=== PATIENT | male | born 1940 | race Two or more races ===

== ENCOUNTER 2017-05-04 10:15 | Outpatient (CLI) | payer MEDICARE, MEDICAID | END 2017-05-04 23:59 | disposition home or self-care (01) | LOC: WOU 10:15 | PROVIDERS: ATTEND Podiatrist Foot & Ankle Surgery | PROC: 0HBKXZZ Excision of Right Lower Leg Skin, External Approach (ICD-10-PCS; principal; 2017-05-04) | DX: I87.311 Chronic venous hypertension (idiopathic) with ulcer of right lower extremity (principal); L97.811 Non-pressure chronic ulcer of other part of right lower leg limited to breakdown of skin; Z87.891 Personal history of nicotine dependence; I10 Essential (primary) hypertension; L81.9 Disorder of pigmentation, unspecified; L53.9 Erythematous condition, unspecified; E83.19 Other disorders of iron metabolism | CPT/HCPCS: 11301; 88305 ×2; A6402; J3490 ==

== ENCOUNTER 2017-05-21 10:45 | Outpatient (CLI) | payer MEDICARE, MEDICAID | END 2017-05-21 23:59 | disposition home or self-care (01) | LOC: WOU 10:45 | PROVIDERS: ATTEND Podiatrist Foot & Ankle Surgery | DX: I87.311 Chronic venous hypertension (idiopathic) with ulcer of right lower extremity (principal); L97.911 Non-pressure chronic ulcer of unspecified part of right lower leg limited to breakdown of skin; I73.9 Peripheral vascular disease, unspecified; E78.5 Hyperlipidemia, unspecified; I25.10 Atherosclerotic heart disease of native coronary artery without angina pectoris; I10 Essential (primary) hypertension; Z87.891 Personal history of nicotine dependence; Z95.820 Peripheral vascular angioplasty status with implants and grafts | CPT/HCPCS: 11042; A6402 ==

== ENCOUNTER 2017-05-27 11:58 | Inpatient (IN) | payer MEDICAID, MEDICARE ==
[~2017-05-27] VITALS: Ht 188 cm; Wt 88.9 kg
--- NOTE | 2017-05-27 12:20 | NUR ---
SENT BY PMD FROM [facility] FOR RLE WOUND EVAL FOR SKIN GRAFT, NAD NOTED, VSS, PUT ON MONITOR. WAITING FOR MD EVAL.
[2017-05-27 12:51] LABS: BASOPHILS # (AUTO) 0.1 /CMM (0.0-0.2); BASOPHILS % (AUTO) 0.8 % (0.0-2.0); EOSINOPHILS # (AUTO) 0.4 /CMM (0.0-0.7); EOSINOPHILS % (AUTO) 5.9 % (0.0-6.0); HEMATOCRIT 37 % (39-51); HEMOGLOBIN 12.1 g/dL (13.5-17.5); LYMPHOCYTES # (AUTO) 1.2 /CMM (0.8-4.8); LYMPHOCYTES % (AUTO) 19.1 % (20.0-44.0); MEAN CORPUSCULAR HEMOGLOBIN 29 PG (26.0-33.0); MEAN CORPUSCULAR HGB CONC 33 g/dl (31.0-36.0); MEAN CORPUSCULAR VOLUME 89 fL (80-96); MONOCYTES # (AUTO) 0.7 /CMM (0.1-1.30); MONOCYTES % (AUTO) 10.1 % (2.0-12.0); NEUTROPHILS % (AUTO) 64.1 % (43.0-81.0); PLATELET COUNT (AUTO) 233 /CMM (150-450); RDW COEFFICIENT OF VARIATION 13.9 (11.5-15.0); RED BLOOD CELL COUNT(AUTO) 4.18 MIL/uL (4.5-6.0); WHITE BLOOD COUNT (AUTO) 6.4 K/uL (4.3-11.0)
[2017-05-27 13:00] LABS: CARBON DIOXIDE 24 mmol/L (21-32); CHLORIDE 106 mmol/L (98-107); CREATININE 1.9 mg/dL (0.6-1.3); GLUCOSE 91 mg/dL (74-106); POTASSIUM 4.4 mmol/L (3.5-5.1); SODIUM SERUM 138 mmol/L (136-145); UREA NITROGEN, BLOOD 25 mg/dL (7-18)
[2017-05-27 13:05] LABS: INR 0.93 (0.87-1.13); PROTHROMBIN TIME 9.7 SECS (9.5-12.7)
[2017-05-27] MEDS ORDERED: HYDROCODONE/APAP 5/325MG 1 EACH TABLET PO PRN (14:00)
[2017-05-27] MEDS ORDERED: ONDANSETRON HCL/PF 4 MG/2 ML VIAL IVP PRN (14:00)
[2017-05-27] MEDS ORDERED: MAGNESIUM HYDROXIDE 30 ML UDC PO PRN (14:00)
[2017-05-27] MEDS ORDERED: MAG HYDROX/AL HYDROX/SIMETH 30 ML UDC PO PRN (14:00)
[2017-05-27] MEDS ORDERED: ACETAMINOPHEN 325 MG TABLET PO PRN (14:00)
[2017-05-27] MEDS ORDERED: ATOR10TA PO (14:14)
[2017-05-27] MEDS ORDERED: MULT1TAB73 PO (14:14)
[2017-05-27] MEDS ORDERED: AMLO5TAB4 PO (14:14)
[2017-05-27] MEDS ORDERED: CLOP75TA2 PO (14:14)
[2017-05-27] MEDS ORDERED: BENA40TA67 PO (14:14)
[2017-05-27] MEDS ORDERED: METO-304 PO (14:14)
--- NOTE | 2017-05-27 14:28 | NUR ---
PT SENT TO [facility] FERREIRA RECEIVED REPORT
[2017-05-27 14:30] VITALS: BP 135/64
--- NOTE | 2017-05-27 14:44 | NUR ---
PT SENT TO BED 12 TA.
[2017-05-27] MEDS: METOPROLOL SUCCINATE 50 MG TAB.SR.24H PO SCH (19:18)
--- NOTE | 2017-05-27 20:00 | NUR ---
PT APPEARS COMFORTABLE. NO INTERVENTIONS REQUIRED AT THIS TIME.
--- NOTE | 2017-05-27 23:00 | NUR ---
NO CHANGES NOTED. CONTINUE TO MONITOR.
[2017-05-27 23:05] VITALS: BP 168/74
[2017-05-28] VITALS (8 sets, daily range): BP systolic 75–146; BP diastolic 36–86
--- NOTE | 2017-05-28 03:35 | NUR ---
CONTINUE TO WAIT FOR ROOM ASSIGNMENT.
[2017-05-28 05:48] LABS: BASOPHILS # (AUTO) 0.1 /CMM (0.0-0.2); BASOPHILS % (AUTO) 1.4 % (0.0-2.0); EOSINOPHILS # (AUTO) 0.4 /CMM (0.0-0.7); EOSINOPHILS % (AUTO) 6.4 % (0.0-6.0); HEMATOCRIT 37 % (39-51); HEMOGLOBIN 12.3 g/dL (13.5-17.5); LYMPHOCYTES # (AUTO) 1.3 /CMM (0.8-4.8); LYMPHOCYTES % (AUTO) 19.3 % (20.0-44.0); MEAN CORPUSCULAR HEMOGLOBIN 29 PG (26.0-33.0); MEAN CORPUSCULAR HGB CONC 33 g/dl (31.0-36.0); MEAN CORPUSCULAR VOLUME 89 fL (80-96); MONOCYTES # (AUTO) 0.6 /CMM (0.1-1.30); NEUTROPHILS # (AUTO) 4.5 /CMM (1.8-8.9); NEUTROPHILS % (AUTO) 63.9 % (43.0-81.0); PLATELET COUNT (AUTO) 231 /CMM (150-450); RED BLOOD CELL COUNT(AUTO) 4.19 MIL/uL (4.5-6.0)
--- NOTE | 2017-05-28 05:48 | NUR ---
UNABLE TO OBTAIN CORRECT BLOOD PRESSURE USING UPPER EXTREMITIES - 75/42. PT IS ALERT AND ORENTED. SKINS DRY. STEADY GAIT. DENIES AND DISTRESS. PALPABLE RADIAL PULSES. USED LEFT CALF TO OBTAIN - 126/75.
[2017-05-28 06:17] LABS: CARBON DIOXIDE 25 mmol/L (21-32); CHLORIDE 108 mmol/L (98-107); CREATININE 1.8 mg/dL (0.6-1.3); GLUCOSE 92 mg/dL (74-106); PHOSPHORUS 3.6 mg/dL (2.5-4.9); POTASSIUM 4.9 mmol/L (3.5-5.1); SODIUM SERUM 141 mmol/L (136-145); UREA NITROGEN, BLOOD 23 mg/dL (7-18)
[2017-05-28 06:23] LABS: CHOLESTEROL 169 mg/dL (<200); HDL CHOLESTEROL 49 mg/dL (40-60); LDL 96 mg/dL (0-99); TRIGLYCERIDES 91 mg/dL (30-150)
--- NOTE | 2017-05-28 06:34 | NUR ---
PT TO GO TO SX AROUND 1300 TO MANAGE HIS LEG WOUND. HOLD PLAVIX AND MAKE PT NPO PER DR. RACHNA HIRSCH.
--- NOTE | 2017-05-28 06:36 | NUR ---
AFTER SX PT TO BE RETURNED TO LONG TERM.
[2017-05-28] MEDS: PANTOPRAZOLE 40 MG TABLET.DR PO SCH (07:30)
--- NOTE | 2017-05-28 07:30 | NUR ---
PATIENT ON BED, CONNECTED TO TELE MONITOR. VSS. SCHEDULED FOR RIGHT FOOT DEBRIDEMENT TODAY. REMAINS NPO.WILL HOLD PLAVIX
[2017-05-28] MEDS: CLOPIDOGREL BISULFATE 75 MG TABLET PO SCH (09:00)
--- NOTE | 2017-05-28 09:00 | NUR ---
PATIENT WAS TAKEN TO SX DEPARTMENT
[2017-05-28] MEDS: BENAZEPRIL HCL 10 MG TABLET PO SCH (09:19)
[2017-05-28] MEDS: ATORVASTATIN 10 MG TABLET PO SCH (09:19)
[2017-05-28] MEDS: METOPROLOL SUCCINATE 50 MG TAB.SR.24H PO SCH ×2 (09:19→17:30)
[2017-05-28] MEDS: AMLODIPINE BESYLATE 5 MG TABLET PO SCH (09:19)
[2017-05-28] MEDS: MULTIVITAMINS,THERAGRAN 1 UDTAB TABLET PO SCH (09:19)
--- NOTE | 2017-05-28 12:00 | NUR ---
RN ADMITTING NOTES: REC'D REPORT FROM TOM DONAHUE. PT ADMITTED AT ROOM 110, MED SURG STATUS. PT A/O X 3, NOT IN ANY DISTRESS, DENIES ANY PAIN/DISCOMFORT AT THIS TIME. ON ROOM AIR, NO SOB. PT S/P R LEG WOUND DEBRIDEMENT W/ WOUND VAC AT BEDSIDE AT 125 MMHG CONT PRESSURE. HAS LFA G22, SL, FLUSHED, PATENT & INTACT W/ NO S/SX OF INFECTION/INFILTRATION NOTED. WOUND PHOTO TAKEN & PLACED IN CHART. PT ORIENTED TO ROOM. ROUTINE ASSESSMENT DONE. PROVIDED COMFORT & SAFETY MEASURES. BED KEPT LOW & IN LOCKED POS. CALL LIGHT PLACED W/IN REACH. WILL CONTINUE TO MONITOR AND ATTEND PT NEEDS. PT SEEN & EXAMINED BY DR. BOONE.
--- NOTE | 2017-05-28 18:31 | NUR ---
RN CLOSING NOTES: NO ACUTE CHANGES NOTED W/IN SHIFT. PT TOLERATED ROOM AIR W/ NO SOB. LFA G22, SL, KEPT PATENT & INTACT W/ NO S/SX OF INFECTION/INFILTRATION NOTED. R LEG S/P WOUND DEBRIDEMENT KEPT ELEVATED, STILL ON CONT WOUND VAC 125 MMHG. NO S/SX OF INFECTION NOTED, (+) PEDAL PULSE. REMINDED PT NWB ON RLE. KEPT WELL RESTED. NEEDS ATTENDED. BED KEPT LOW & IN LOCKED POS. CALL LIGHT PLACED W/IN REACH. WILL ENDORSE TO PM RN FOR TWIN.
--- NOTE | 2017-05-28 19:05 | NUR ---
RN OPENING NOTES RECEIVED REPORT FROM GEORGIANA Bustos RN. PATIENT A/A/O X3, ABLE TO MAKE NEEDS KNOWN. BREATHING EVEN & UNLABORED, SATING WELL ON ROOM AIR. DENIES SOB OR DIFFICULTY BREATHING. PULSES PRESENT. SKIN WARM, DRY & INTACT. RIGHT LEG WOUND W/ ULCER S/P DEBRIDEMENT W/ DRESSING CDI & NO COMPLICATIONS NOTED. WOUND VAC ONGOING @ 125 MMHG. C/O OF MINIMAL PAIN @ WOUND SITE. LEFT FOREARM IV #22 INTACT & PATENT W/ DRESSING CDI, SALINE LOCKED. DENIES ANY OTHER PAIN OR DISCOMFORT @ THIS TIME. SAFETY MEASURES IN PLACE W/ SIDE RAILS UP, BED LOCKED & IN LOWEST POSITION & CALL LIGHT WITHIN REACH. WILL CONTINUE TO MONITOR.
[2017-05-29 04:00] VITALS: BP 114/57
[2017-05-29 05:21] LABS: APPEARANCE,URINE CLEAR (CLEAR); BILIRUBIN,URINE NEGATIVE (NEGATIVE); BLOOD, URINE NEGATIVE Ery/uL (NEGATIVE); COLOR,URINE YELLOW (YELLOW); KETONES,URINE NEGATIVE (NEGATIVE); LEUKOCYTE ESTERASE ,URINE NEGATIVE (NEGATIVE); NITRITE, URINE NEGATIVE (NEGATIVE); PH,URINE 5.5 (5.0-8.0); PROTEIN,URINE NEGATIVE (NEGATIVE); UGLUCOSE NEGATIVE (NEGATIVE); UROBILINOGEN,URINE 0.2 EU/dL (0.2)
[2017-05-29 06:52] LABS: BASOPHILS % (AUTO) 0.4 % (0.0-2.0); EOSINOPHILS # (AUTO) 0.4 /CMM (0.0-0.7); EOSINOPHILS % (AUTO) 4.3 % (0.0-6.0); HEMATOCRIT 36 % (39-51); HEMOGLOBIN 12.1 g/dL (13.5-17.5); LYMPHOCYTES # (AUTO) 1.4 /CMM (0.8-4.8); LYMPHOCYTES % (AUTO) 16.5 % (20.0-44.0); MEAN CORPUSCULAR HEMOGLOBIN 30 PG (26.0-33.0); MEAN CORPUSCULAR HGB CONC 33 g/dl (31.0-36.0); MEAN CORPUSCULAR VOLUME 89 fL (80-96); MONOCYTES # (AUTO) 0.5 /CMM (0.1-1.30); MONOCYTES % (AUTO) 6.5 % (2.0-12.0); NEUTROPHILS % (AUTO) 72.3 % (43.0-81.0); PLATELET COUNT (AUTO) 203 /CMM (150-450); RDW COEFFICIENT OF VARIATION 15.1 (11.5-15.0); RED BLOOD CELL COUNT(AUTO) 4.09 MIL/uL (4.5-6.0); WHITE BLOOD COUNT (AUTO) 8.3 K/uL (4.3-11.0)
[2017-05-29 06:59] LABS: CALCIUM, SERUM 8.6 mg/dL (8.5-10.1); CARBON DIOXIDE 24 mmol/L (21-32); CHLORIDE 106 mmol/L (98-107); CREATININE 1.7 mg/dL (0.6-1.3); GLUCOSE 88 mg/dL (74-106); PHOSPHORUS 3.8 mg/dL (2.5-4.9); POTASSIUM 4.8 mmol/L (3.5-5.1); SODIUM SERUM 138 mmol/L (136-145); UREA NITROGEN, BLOOD 19 mg/dL (7-18)
--- NOTE | 2017-05-29 07:16 | NUR ---
RN NOTES RECEIVED PT FROM CHILD CARE SITTER IN STABLE CONDITION. A&0X3 ON ROOM AIR NO SOB OR DISTRESS NOTED. LFA 22G IV SITE INTACT NO IVF. WOUND VAC IN PLACE, DRESSING INTACT. BED LOCKED AND IN LOWEST POSITION, CALL LIGHT WITHIN REACH, SIDE RAILS UPX3, WILL CONT TO ARGELIA.
[2017-05-29 08:00] VITALS: BP 115/56
[2017-05-29] MEDS: AMLODIPINE BESYLATE 5 MG TABLET PO SCH (08:30)
[2017-05-29] MEDS: METOPROLOL SUCCINATE 50 MG TAB.SR.24H PO SCH ×2 (08:31→17:05)
[2017-05-29] MEDS: PANTOPRAZOLE 40 MG TABLET.DR PO SCH (08:31)
[2017-05-29] MEDS: CLOPIDOGREL BISULFATE 75 MG TABLET PO SCH (08:31)
[2017-05-29] MEDS: MULTIVITAMINS,THERAGRAN 1 UDTAB TABLET PO SCH (08:31)
[2017-05-29] MEDS: ATORVASTATIN 10 MG TABLET PO SCH (08:31)
[2017-05-29] MEDS: BENAZEPRIL HCL 10 MG TABLET PO SCH (08:32)
--- NOTE | 2017-05-29 08:43 | NUR ---
WOUND CARE CONSULT: PT INDEPENDENT WITH BED MOBILITY AND CONTINENT. CURRENT DEMETRIO SCORE IS 19. PT HAS [facility] VAC TO RT ANTERIOR LOWER LEG WHICH IS FUNCTIONING WELL AT 125mmHg CONTINUOUS SETTING. NO DRAINAGE NOTED IN CANISTER. DEFER TO DR ZUNIGA FOR WOUND TREATMENT PLAN. WILL SEE PRN. LEE IN AGREEMENT WITH PLAN OF CARE. Addendum: 05/29/17 at 0844 by INOCENTE VILLAGOMEZ WNDNU Amended: Links added.
[2017-05-29 16:00] VITALS: BP 127/63
--- NOTE | 2017-05-29 18:22 | NUR ---
RN NOTES PT REMAINED IN STABLE CONDITION THROUGHOUT THE SHIFT, ALL NEEDS MET. WILL ENDORSE TO ONCOMING SHIFT.
[2017-05-29 20:00] VITALS: BP 164/78
[2017-05-30 04:00] VITALS: BP 121/65
[2017-05-30 06:26] LABS: BASOPHILS % (AUTO) 0.3 % (0.0-2.0); EOSINOPHILS # (AUTO) 0.4 /CMM (0.0-0.7); EOSINOPHILS % (AUTO) 5.4 % (0.0-6.0); HEMATOCRIT 37 % (39-51); HEMOGLOBIN 12.2 g/dL (13.5-17.5); LYMPHOCYTES # (AUTO) 1.9 /CMM (0.8-4.8); LYMPHOCYTES % (AUTO) 22.2 % (20.0-44.0); MEAN CORPUSCULAR HEMOGLOBIN 29 PG (26.0-33.0); MEAN CORPUSCULAR HGB CONC 33 g/dl (31.0-36.0); MEAN CORPUSCULAR VOLUME 88 fL (80-96); MONOCYTES # (AUTO) 0.6 /CMM (0.1-1.30); MONOCYTES % (AUTO) 6.9 % (2.0-12.0); NEUTROPHILS # (AUTO) 5.4 /CMM (1.8-8.9); NEUTROPHILS % (AUTO) 65.2 % (43.0-81.0); PLATELET COUNT (AUTO) 209 /CMM (150-450); RDW COEFFICIENT OF VARIATION 14.7 (11.5-15.0); RED BLOOD CELL COUNT(AUTO) 4.18 MIL/uL (4.5-6.0); WHITE BLOOD COUNT (AUTO) 8.4 K/uL (4.3-11.0)
[2017-05-30 06:49] LABS: CALCIUM, SERUM 8.8 mg/dL (8.5-10.1); CARBON DIOXIDE 24 mmol/L (21-32); CHLORIDE 105 mmol/L (98-107); CREATININE 1.7 mg/dL (0.6-1.3); GLUCOSE 88 mg/dL (74-106); PHOSPHORUS 3.9 mg/dL (2.5-4.9); POTASSIUM 4.3 mmol/L (3.5-5.1); SODIUM SERUM 138 mmol/L (136-145); UREA NITROGEN, BLOOD 22 mg/dL (7-18)
--- NOTE | 2017-05-30 07:30 | NUR ---
RN AM NOTES PT IN BED, AAO X4, WATCHING TV, S/P DEBRIDEMENT RT LEG 05/28/17, WOUND VAC IN PLACE, O OUTPUT CDI DRESSING, ON ROOM AIR, NO SOB OR DISTRESS NOTED. LFA 22G IV, FLUSHES WELL, SITE CLEAR, ON CARDIAC DIET, BRP WITH ASSIST, NWB TO RLE. BED LOCKED AND IN LOWEST POSITION, CALL LIGHT WITHIN REACH, SIDE RAILS UPX3, WILL CONT TO ARGELIA.
[2017-05-30 08:00] VITALS: BP 129/66
[2017-05-30] MEDS: PANTOPRAZOLE 40 MG TABLET.DR PO SCH (08:24)
[2017-05-30] MEDS: BENAZEPRIL HCL 10 MG TABLET PO SCH (08:24)
[2017-05-30] MEDS: ATORVASTATIN 10 MG TABLET PO SCH (08:24)
[2017-05-30] MEDS: AMLODIPINE BESYLATE 5 MG TABLET PO SCH (08:25)
[2017-05-30] MEDS: CLOPIDOGREL BISULFATE 75 MG TABLET PO SCH (08:26)
[2017-05-30] MEDS: MULTIVITAMINS,THERAGRAN 1 UDTAB TABLET PO SCH (08:26)
[2017-05-30] MEDS: METOPROLOL SUCCINATE 50 MG TAB.SR.24H PO SCH ×2 (08:28→16:52)
--- NOTE | 2017-05-30 09:30 | NUR ---
MS RN NOTES ADMINISTERED DUE MEDS.
[2017-05-30 16:00] VITALS: BP 130/64
--- NOTE | 2017-05-30 18:47 | NUR ---
RN CLOSING NOTES PT IN BED,RESTING COMFORTABLY, AAO X4, WATCHING TV, S/P DEBRIDEMENT RT LEG 05/28/17, WOUND VAC IN PLACE, O OUTPUT CDI DRESSING, SEEN BY DR. TOBAR EARLIER, DRESSING CHANGED. ON ROOM AIR, NO SOB OR DISTRESS NOTED. LFA 22G IV, FLUSHES WELL, SITE CLEAR, ON CARDIAC DIET, BRP WITH ASSIST, NWB TO RLE. BED LOCKED AND IN LOWEST POSITION, CALL LIGHT WITHIN REACH, SIDE RAILS UPX3, ALL NEEDS MET. NO OTHER SIGNIFICANT CHANGE IN CONDITION. WILL ENDORSE TO NEXT SHIFT FOR TWIN.
[2017-05-30 20:00] VITALS: BP 129/60
--- NOTE | 2017-05-30 20:00 | NUR ---
RN INITIAL NOTES PT IN BED,RESTING COMFORTABLY, AAO X4, WATCHING TV, S/P DEBRIDEMENT RT LEG 05/28/17, WOUND VAC IN PLACE. ON ROOM AIR, NO SOB OR DISTRESS NOTED. LFA 22G IV, FLUSHES WELL, SITE CLEAR, ON CARDIAC DIET, BRP WITH ASSIST, NWB TO RLE. BED LOCKED AND IN LOWEST POSITION, CALL LIGHT WITHIN REACH, SIDE RAILS UPX3, WILL CONTINUE TO MONITOR PT.
[2017-05-31 04:00] VITALS: BP 129/60
[2017-05-31 05:58] LABS: BASOPHILS % (AUTO) 0.1 % (0.0-2.0); EOSINOPHILS # (AUTO) 0.4 /CMM (0.0-0.7); HEMATOCRIT 38 % (39-51); HEMOGLOBIN 12.6 g/dL (13.5-17.5); LYMPHOCYTES # (AUTO) 1.5 /CMM (0.8-4.8); LYMPHOCYTES % (AUTO) 19.1 % (20.0-44.0); MEAN CORPUSCULAR HEMOGLOBIN 30 PG (26.0-33.0); MEAN CORPUSCULAR HGB CONC 34 g/dl (31.0-36.0); MEAN CORPUSCULAR VOLUME 88 fL (80-96); MONOCYTES # (AUTO) 0.5 /CMM (0.1-1.30); MONOCYTES % (AUTO) 6.9 % (2.0-12.0); NEUTROPHILS # (AUTO) 5.3 /CMM (1.8-8.9); NEUTROPHILS % (AUTO) 68.9 % (43.0-81.0); PLATELET COUNT (AUTO) 195 /CMM (150-450); RDW COEFFICIENT OF VARIATION 14.1 (11.5-15.0); RED BLOOD CELL COUNT(AUTO) 4.25 MIL/uL (4.5-6.0); WHITE BLOOD COUNT (AUTO) 7.6 K/uL (4.3-11.0)
[2017-05-31 06:17] LABS: CALCIUM, SERUM 8.6 mg/dL (8.5-10.1); CARBON DIOXIDE 23 mmol/L (21-32); CHLORIDE 106 mmol/L (98-107); CREATININE 1.6 mg/dL (0.6-1.3); GLUCOSE 92 mg/dL (74-106); MAGNESIUM 1.9 mg/dL (1.8-2.4); PHOSPHORUS 3.5 mg/dL (2.5-4.9); POTASSIUM 3.8 mmol/L (3.5-5.1); SODIUM SERUM 139 mmol/L (136-145); UREA NITROGEN, BLOOD 25 mg/dL (7-18)
--- NOTE | 2017-05-31 07:15 | NUR ---
RN CLOSING NOTES PT SLEPT MOST OF THE NIGHT, NO CHANGES OVER NIGHT. BED LOCKED AND IN LOWEST POSITION, CALL LIGHT WITHIN REACH, SIDE RAILS UPX2, ALL NEEDS TENDED TO . RN WILL ENDORSE TO AM RN.
--- NOTE | 2017-05-31 07:56 | NUR ---
MS RN NOTES RECEIVED PT RESTING COMFORTABLE, A/O X 4, NO PAIN OR DISCOMFORT NOTED AT THIS TIME. RIGHT LOWER LEG WOUND VAC @ 25CC/HR CONTINUE SUCTION, L FA #22 WITH REDNESS AND TENDERNESS NOTED. BED LOCKED AND LOW POSITION. SAFETY FALL PRECAUTION OBSERVED. CALL LIGHT WITHIN REACH. PLAN OF CARE DISCUSS TO THE PT. WILL CONTINUE TO MONITOR CLOSELY.
[2017-05-31 08:00] VITALS: BP 129/71
[2017-05-31] MEDS: BENAZEPRIL HCL 10 MG TABLET PO SCH (08:26)
[2017-05-31] MEDS: AMLODIPINE BESYLATE 5 MG TABLET PO SCH (08:26)
[2017-05-31] MEDS: METOPROLOL SUCCINATE 50 MG TAB.SR.24H PO SCH ×2 (08:26→16:31)
[2017-05-31] MEDS: CLOPIDOGREL BISULFATE 75 MG TABLET PO SCH (08:26)
[2017-05-31] MEDS: MULTIVITAMINS,THERAGRAN 1 UDTAB TABLET PO SCH (08:27)
[2017-05-31] MEDS: PANTOPRAZOLE 40 MG TABLET.DR PO SCH (08:27)
[2017-05-31] MEDS: ATORVASTATIN 10 MG TABLET PO SCH (08:27)
--- NOTE | 2017-05-31 14:51 | NUR ---
MS RN NOTES INSERTED IV LINE G24 AT RIGHT UPPER ARM, WITH GOOD BLOOD RETURN.
[2017-05-31 16:00] VITALS: BP_SYST 121; BP_DIAS 71; BP_DIAS 78
--- NOTE | 2017-05-31 17:01 | NUR ---
MS RN NOTE HOLD D/C BY DR. BOONE FOR POSSIBLE SPLIT THICKNESS SKIN GRAFT ON THURSDAY.
--- NOTE | 2017-05-31 18:23 | NUR ---
MS RN NOTE NO ACUTE CHANGES NOTED DURING THE SHIFT. HAVING DINNER ABLE TO FEED SELF. CONTINUE VAC AT THE RIGHT LEG. CALL LIGHT WITHIN REACH. BED IN LOCKED POSITION. ALL NEEDS ATTENDED. WILL ENDORSE TO THE PM NURSE.
[2017-05-31 20:00] VITALS: BP 132/64
--- NOTE | 2017-05-31 20:16 | NUR ---
RN INITIAL NOTE PT IS RESTING IN BED AT THIS TIME. R LE WOUND VAC TO CONTINUOUS SUCTION. PT IS IN NO DISTRESS. CALL LIGHT WITHIN REACH. BED IN LOWEST AND LOCKED POSITION. ALL NEEDS ATTENDED. RN WILL CONTINUE TO MONITOR PT.
[2017-06-01] VITALS (8 sets, daily range): BP systolic 113–139; BP diastolic 64–78
[2017-06-01 06:22] LABS: BASOPHILS % (AUTO) 0.4 % (0.0-2.0); EOSINOPHILS # (AUTO) 0.4 /CMM (0.0-0.7); EOSINOPHILS % (AUTO) 5.3 % (0.0-6.0); HEMATOCRIT 37 % (39-51); HEMOGLOBIN 12.6 g/dL (13.5-17.5); LYMPHOCYTES # (AUTO) 1.8 /CMM (0.8-4.8); LYMPHOCYTES % (AUTO) 20.9 % (20.0-44.0); MEAN CORPUSCULAR HEMOGLOBIN 30 PG (26.0-33.0); MEAN CORPUSCULAR HGB CONC 34 g/dl (31.0-36.0); MEAN CORPUSCULAR VOLUME 89 fL (80-96); MONOCYTES # (AUTO) 0.6 /CMM (0.1-1.30); MONOCYTES % (AUTO) 7.6 % (2.0-12.0); NEUTROPHILS # (AUTO) 5.5 /CMM (1.8-8.9); NEUTROPHILS % (AUTO) 65.8 % (43.0-81.0); PLATELET COUNT (AUTO) 207 /CMM (150-450); RDW COEFFICIENT OF VARIATION 14.1 (11.5-15.0); RED BLOOD CELL COUNT(AUTO) 4.21 MIL/uL (4.5-6.0); WHITE BLOOD COUNT (AUTO) 8.4 K/uL (4.3-11.0)
[2017-06-01 06:39] LABS: CALCIUM, SERUM 8.7 mg/dL (8.5-10.1); CARBON DIOXIDE 24 mmol/L (21-32); CHLORIDE 107 mmol/L (98-107); CREATININE 1.6 mg/dL (0.6-1.3); GLUCOSE 91 mg/dL (74-106); POTASSIUM 3.9 mmol/L (3.5-5.1); SODIUM SERUM 141 mmol/L (136-145); UREA NITROGEN, BLOOD 27 mg/dL (7-18)
--- NOTE | 2017-06-01 07:00 | NUR ---
RN CLOSING NOTES PT IS RESTING IN BED AT THIS TIME. R LE WOUND VAC TO CONTINUOUS SUCTION. PT IS IN NO DISTRESS.PT NPO IN PREPARATION FOR SURGERY. RN WITNESS PT CONSENT FOR SURGERY. CALL LIGHT WITHIN REACH. BED IN LOWEST AND LOCKED POSITION. ALL NEEDS ATTENDED. RN WILL ENDORSE TO AM RN.
[2017-06-01] MEDS: PANTOPRAZOLE 40 MG TABLET.DR PO SCH (07:30)
[2017-06-01 08:39] LABS: MAGNESIUM 1.9 mg/dL (1.8-2.4); PHOSPHORUS 3.7 mg/dL (2.5-4.9)
[2017-06-01] MEDS: BENAZEPRIL HCL 10 MG TABLET PO SCH (09:00)
[2017-06-01] MEDS: CLOPIDOGREL BISULFATE 75 MG TABLET PO SCH (09:00)
[2017-06-01] MEDS: METOPROLOL SUCCINATE 50 MG TAB.SR.24H PO SCH ×2 (09:00→16:40)
[2017-06-01] MEDS: AMLODIPINE BESYLATE 5 MG TABLET PO SCH (09:00)
[2017-06-01] MEDS: ATORVASTATIN 10 MG TABLET PO SCH (09:00)
[2017-06-01] MEDS: MULTIVITAMINS,THERAGRAN 1 UDTAB TABLET PO SCH (09:00)
--- NOTE | 2017-06-01 10:00 | NUR ---
ms learning support aide notes Received bedside report from VIKY nurse, patient in bed, awake, head of bed elevated, no SOB or distress noted. IV intact and patent. Wound vac on the right foot working fine. NPO for scheduled procedure for skin graft. Patient is alert and oriented x 4, verbally responsive and able to make needs known. No complaint of pain or discomfort noted at this time. Vital signs checked and recorded. Kept patient clean and comfortable in bed, call light with in patient reach, will continue to monitor accordingly.
--- NOTE | 2017-06-01 10:00 | NUR ---
RN NOTE PT TRANSFERED TO ROOM 203, REPORT GIVEN TO GODFREY NARVAEZ FOR TWIN. PT AOAX4, NO DISTRESS, STABLE, DENIES PAIN. SAFETY PRECAUTIONS MAINTAINED.
[2017-06-01] MEDS ORDERED: FENTANYL PF 100MCG/2ML AMPUL ONE (12:18)
[2017-06-01] MEDS ORDERED: MINERAL OIL 10 ML VIAL MC ONE (12:24)
[2017-06-01] MEDS ORDERED: BUPIVACAINE 0.5 % PF 150 MG/30 ML VIAL ONE (12:24)
[2017-06-01] MEDS ORDERED: LIDOCAINE MPF 1%-EPI 1:200,000 30 ML VIAL IJ ONE (12:24)
--- NOTE | 2017-06-01 19:25 | NUR ---
ms rn closing notes All needs provided, attended, and anticipated. kept patient clean and comfortable in bed, call light with in patient reach, endorsed to next shift RN to continue care.
--- NOTE | 2017-06-01 19:30 | NUR ---
RN NOTE; RECEIVED PT IN BED AWAKE AND ALERT. BREATHING EVENLY. NO SOB. NAD. SKIN WARM AND DRY. NO C/O PAIN OR DISCOMFORT AT THIS TIME. RIGHT THIGH DRESSING ON THE SX SITE INTACT AND DRY. RIGHT SINGH SX SITE W/ DRESSING CDI W/ WOUND VAC IN PLACE DRAINING WELL. ALL NEEDS ATTENDED. BED LOW LOCKED. CALL LIGHT WITHIN REACH. WILL CONT TO MONITOR
--- NOTE | 2017-06-02 01:00 | NUR ---
NORCO 5-325 GIVEN FOR C/O R LEG PAIN. WILL CONT TO MONITOR
--- NOTE | 2017-06-02 06:32 | NUR ---
PT IN BED SLEEPING. BREATHING EVENLY. NO SOB. NO ACUTE EVENT DURING THE NIGHT. PAIN MEDICATION GIVEN ORDERED PER PT'S REQUEST EFFECTIVE. WOUND VAC AND DRESSINGS IN PLACE. ASSISTED W/ ADLS. CALL LIGHT WITHIN REACH. WILL CONT TO MONITOR AND WILL ENDORSE TO AM SHIFT FOR TWIN.
[2017-06-02 07:18] LABS: CALCIUM, SERUM 8.6 mg/dL (8.5-10.1); CARBON DIOXIDE 24 mmol/L (21-32); CHLORIDE 105 mmol/L (98-107); CREATININE 1.5 mg/dL (0.6-1.3); GLUCOSE 89 mg/dL (74-106); SODIUM SERUM 138 mmol/L (136-145); UREA NITROGEN, BLOOD 28 mg/dL (7-18)
[2017-06-02 07:22] LABS: BASOPHILS % (AUTO) 0.2 % (0.0-2.0); EOSINOPHILS # (AUTO) 0.4 /CMM (0.0-0.7); EOSINOPHILS % (AUTO) 4.9 % (0.0-6.0); HEMATOCRIT 35 % (39-51); HEMOGLOBIN 11.6 g/dL (13.5-17.5); LYMPHOCYTES # (AUTO) 1.8 /CMM (0.8-4.8); LYMPHOCYTES % (AUTO) 23.6 % (20.0-44.0); MEAN CORPUSCULAR HEMOGLOBIN 30 PG (26.0-33.0); MEAN CORPUSCULAR HGB CONC 34 g/dl (31.0-36.0); MEAN CORPUSCULAR VOLUME 88 fL (80-96); MONOCYTES # (AUTO) 0.6 /CMM (0.1-1.30); MONOCYTES % (AUTO) 7.3 % (2.0-12.0); PLATELET COUNT (AUTO) 198 /CMM (150-450); RDW COEFFICIENT OF VARIATION 14.5 (11.5-15.0); RED BLOOD CELL COUNT(AUTO) 3.91 MIL/uL (4.5-6.0); WHITE BLOOD COUNT (AUTO) 7.8 K/uL (4.3-11.0)
--- NOTE | 2017-06-02 07:23 | NUR ---
ms rn initial notes Received patient in bed, asleep, head of bed elevated, no SOB or distress noted. on room air. IV intact and patent. Wound vac on the the right leg and working fine. No pain or discomfort noted. kept patient clean and comfortable in bed, call light with in patient reach, will continue to monitor accordingly.
[2017-06-02 07:27] LABS: PHOSPHORUS 3.8 mg/dL (2.5-4.9)
[2017-06-02 08:00] VITALS: BP 141/75
[2017-06-02] MEDS: CLOPIDOGREL BISULFATE 75 MG TABLET PO SCH (08:34)
[2017-06-02] MEDS: MULTIVITAMINS,THERAGRAN 1 UDTAB TABLET PO SCH (08:34)
[2017-06-02] MEDS: PANTOPRAZOLE 40 MG TABLET.DR PO SCH (08:34)
[2017-06-02] MEDS: ATORVASTATIN 10 MG TABLET PO SCH (08:34)
[2017-06-02] MEDS: BENAZEPRIL HCL 10 MG TABLET PO SCH (08:35)
[2017-06-02] MEDS: METOPROLOL SUCCINATE 50 MG TAB.SR.24H PO SCH ×2 (08:35→16:23)
[2017-06-02] MEDS: AMLODIPINE BESYLATE 5 MG TABLET PO SCH (08:35)
[2017-06-02] MEDS: HYDROCODONE/APAP 10/325MG 1 EA TABLET PO PRN (08:39)
[2017-06-02 16:00] VITALS: BP 123/60
--- NOTE | 2017-06-02 19:30 | NUR ---
RN NOTE; RECEIVED PT IN BED UP ON THE BSC. BREATHING EVENLY. NO SOB. NAD. SKIN WARM AND DRY. NO C/O PAIN OR DISCOMFORT AT THIS TIME. RIGHT THIGH DRESSING ON THE SX SITE INTACT AND DRY. RIGHT SINGH SX SITE W/ DRESSING CDI W/ WOUND VAC IN PLACE DRAINING WELL. ALL NEEDS ATTENDED. CALL LIGHT WITHIN REACH. WILL CONT TO MONITOR
[2017-06-02 20:00] VITALS: BP 112/61
[2017-06-03] MEDS: HYDROCODONE/APAP 10/325MG 1 EA TABLET PO PRN (00:13)
--- NOTE | 2017-06-03 00:14 | NUR ---
norco 10 given for c/o severe R leg pain. will cont to monitor,
--- NOTE | 2017-06-03 07:15 | NUR ---
PT IN BED SLEEPING, AROUSES EASILY BREATHING . NO SOB. NO S/S OR C/O PAIN OR DISCOMFORT. DRESSINGS AND WOUND VAC IN PLACE. NEEDS ATTENDED. ASSISTED W/ ADLS. CALL LIGHT WITHIN REACH. WILL CONT TO MONITOR AND WILL ENDORSE TO AM SHIFT FOR TWIN.
--- NOTE | 2017-06-03 07:25 | NUR ---
RN NOTES PATIENT IN BED, AOX4, ON ROOM AIR, RESPIRATIONS EVEN AND UNLABORED. APPEARS CALM AND IN NO DISTRESS, IV ACCESS PATENT AND INTACT NO REDNESS OR INFILTRATION NOTED.PROVIDED COMFORT AND SAFETY MEASURES. BED IN LOWEST AND LOCKED POSITION, SIDERAILS UP X 2. WILL CONTINUE TO MONITOR
[2017-06-03 08:00] VITALS: BP 118/68
[2017-06-03] MEDS: PANTOPRAZOLE 40 MG TABLET.DR PO SCH (08:20)
[2017-06-03] MEDS: MULTIVITAMINS,THERAGRAN 1 UDTAB TABLET PO SCH (08:20)
[2017-06-03] MEDS: ATORVASTATIN 10 MG TABLET PO SCH (08:20)
[2017-06-03] MEDS: CLOPIDOGREL BISULFATE 75 MG TABLET PO SCH (08:20)
[2017-06-03] MEDS: AMLODIPINE BESYLATE 5 MG TABLET PO SCH (08:22)
[2017-06-03] MEDS: BENAZEPRIL HCL 10 MG TABLET PO SCH (09:34)
[2017-06-03] MEDS: METOPROLOL SUCCINATE 50 MG TAB.SR.24H PO SCH ×2 (09:35→16:51)
--- NOTE | 2017-06-03 14:21 | NUR ---
RN NOTES PATIENT WITH DISCHARGE ORDERS TO SNF, WILL CONTINUE TO ASSIST WITH DISCHARGE PROCESS AND CONTINUE TO MONITOR, AWAITING ARRIVAL OF WOUND VAC
[2017-06-03 16:00] VITALS: BP 135/64
--- NOTE | 2017-06-03 18:54 | NUR ---
RN NOTES PATIENT IN BED, AOX4, ON ROOM AIR, RESPIRATIONS EVEN AND UNLABORED. APPEARS CALM AND IN NO DISTRESS, IV ACCESS PATENT AND INTACT NO REDNESS OR INFILTRATION NOTED.PROVIDED COMFORT AND SAFETY MEASURES. BED IN LOWEST AND LOCKED POSITION, SIDERAILS UP X 2. WILL CONTINUE TO MONITOR FOR CONTINUITY OF CARE, PREPARED DC PAPER WORK REVIEWED INSTRUCTIONS WITH PT AND SNF RNFERNANDO. WILL ENDORSE INSTRUCTIONS TO ONCOMING RN
[2017-06-03 20:00] VITALS: BP_SYST 123; BP_SYST 140; BP_DIAS 77; BP_DIAS 86
--- NOTE | 2017-06-03 20:00 | NUR ---
MS RN NOTES CALLED [facility] FOR WOUND VAC CANISTER. PER MAYUR FROM [facility] THEY SHOULD HAVE IT AT [facility]. WILL VERIFY WITH STONE CUTTER AT [facility].
--- NOTE | 2017-06-03 20:30 | NUR ---
MS RN NOTES AMBULANCE CAME IN AND PICKED UP PT. AWAKE A/O X 4. NOT IN ANY DISTRESS. NO SOB NOTED. DENIES ANY PAIN OR DISCOMFORT AT THIS TIME. IV-HL D/CD. PT TOLERATED WELL. SPOKE TO [facility] REGARDING CANISTER FOR WOUND VAC. PER THEY WILL ORDER IT IN THEIR CENTRAL SUPPLY. PORTABLE WOUND VAC MACHINE SENT WITH PT. BELONGINGS SENT WITH PT. DRESSING C/D/I. ENDORSED TO THAT DRESSING CHANGE WILL BE DONE BY MD AT FACILITY. ENDORSED ACCORDINGLY.
== END 2017-06-03 21:00 | DRG 573 ==
LOC: ER 11:59 → TRANSITION 13:53 → MEDSG1 05-28 11:38 → MEDSG2 06-01 09:26
PROVIDERS: ADMIT Nurse Practitioner Acute Care; ATTEND Nurse Practitioner Acute Care
PROC: 0JBQ0ZZ Excision of Right Foot Subcutaneous Tissue and Fascia, Open Approach (ICD-10-PCS; 2017-05-28)
PROC: 0JBQ0ZZ Excision of Right Foot Subcutaneous Tissue and Fascia, Open Approach (ICD-10-PCS; 2017-06-01)
PROC: 0HBHXZZ Excision of Right Upper Leg Skin, External Approach (ICD-10-PCS; 2017-06-01)
PROC: 0HRKX74 Replacement of Right Lower Leg Skin with Autologous Tissue Substitute, Partial Thickness, External Approach (ICD-10-PCS; principal; 2017-06-01 12:54)
DX: L97.819 Non-pressure chronic ulcer of other part of right lower leg with unspecified severity (principal); N17.0 Acute kidney failure with tubular necrosis; D63.8 Anemia in other chronic diseases classified elsewhere; I73.9 Peripheral vascular disease, unspecified; E78.5 Hyperlipidemia, unspecified; I12.9 Hypertensive chronic kidney disease with stage 1 through stage 4 chronic kidney disease, or unspecified chronic kidney disease; I25.10 Atherosclerotic heart disease of native coronary artery without angina pectoris; N18.9 Chronic kidney disease, unspecified; Z87.891 Personal history of nicotine dependence; Z98.62 Peripheral vascular angioplasty status; Z95.1 Presence of aortocoronary bypass graft
CPT/HCPCS: 36415; 71010-TC; 80048-TC; 80061-TC; 81000-TC; 82962-TC; 83735-TC; 84100-TC; 85025-TC; 85730-TC; 87081-TC; A4606; A6209; A6253; A6402; J0690; J2405; J2704; J3010; J3490; J7030; Z7610

== ENCOUNTER 2017-10-07 08:39 | Outpatient (CLI) | payer MEDICARE, MEDICAID ==
[~2017-10-07 08:39] MED LIST: AMLO5TAB4 PO; AMLODIPINE BESYLATE 5 MG TABLET ONE; ATOR10TA PO; BENA40TA67 PO; BENAZEPRIL HCL 10 MG TABLET ONE; CLOP75TA15 PO; FENTANYL PF 100MCG/2ML AMPUL ONE; LIDOCAINE 2%-EPI 1:200,000 20 ML VIAL IJ ONE; METO-357 PO; MIDAZOLAM HCL 2 MG/2ML VIAL ONE; MINERAL OIL 10 ML VIAL MC ONE; MULT1TAB73 PO; PANTOPRAZOLE 40 MG TABLET.DR PO ONE
[2018-02-23] MEDS ORDERED: ASCO500T9 PO (13:14)
[2018-02-23] MEDS ORDERED: PANT40TA2 PO (13:14)
[2018-03-01] MEDS ORDERED: LACT-246 PO (12:51)
== END 2017-10-07 23:59 | disposition home health service (06) ==
LOC: WOU 08:39
PROVIDERS: ATTEND Specialist
DX: I87.311 Chronic venous hypertension (idiopathic) with ulcer of right lower extremity (principal); L97.812 Non-pressure chronic ulcer of other part of right lower leg with fat layer exposed; T86.828 Other complications of skin graft (allograft) (autograft); I73.9 Peripheral vascular disease, unspecified; Z98.41 Cataract extraction status, right eye; Z87.891 Personal history of nicotine dependence; I10 Essential (primary) hypertension; I25.10 Atherosclerotic heart disease of native coronary artery without angina pectoris; Z79.02 Long term (current) use of antithrombotics/antiplatelets
CPT/HCPCS: A6402; G0463; J2250; J3010; J3490

== ENCOUNTER 2017-10-26 11:14 | Outpatient (CLI) | payer MEDICARE, OTHER ==
[~2017-10-26 11:14] MED LIST changes: -AMLODIPINE BESYLATE 5 MG TABLET ONE; -BENAZEPRIL HCL 10 MG TABLET ONE; -FENTANYL PF 100MCG/2ML AMPUL ONE; -LIDOCAINE 2%-EPI 1:200,000 20 ML VIAL IJ ONE; -MIDAZOLAM HCL 2 MG/2ML VIAL ONE; -MINERAL OIL 10 ML VIAL MC ONE; -PANTOPRAZOLE 40 MG TABLET.DR PO ONE
[2018-02-23] MEDS ORDERED: PANT40TA2 PO (13:14)
[2018-02-23] MEDS ORDERED: ASCO500T9 PO (13:14)
[2018-03-01] MEDS ORDERED: LACT-246 PO (12:51)
== END 2017-10-26 23:59 | disposition home or self-care (01) ==
LOC: WOU 11:14
PROVIDERS: ATTEND Podiatrist Foot & Ankle Surgery
DX: I87.311 Chronic venous hypertension (idiopathic) with ulcer of right lower extremity (principal); L97.812 Non-pressure chronic ulcer of other part of right lower leg with fat layer exposed; I73.9 Peripheral vascular disease, unspecified; T86.828 Other complications of skin graft (allograft) (autograft); Z98.41 Cataract extraction status, right eye; Z87.891 Personal history of nicotine dependence; I70.209 Unspecified atherosclerosis of native arteries of extremities, unspecified extremity; Z98.62 Peripheral vascular angioplasty status; I10 Essential (primary) hypertension; E78.5 Hyperlipidemia, unspecified; Z79.02 Long term (current) use of antithrombotics/antiplatelets; Z79.899 Other long term (current) drug therapy
CPT/HCPCS: 11042; A6402

== ENCOUNTER 2017-11-02 10:56 | Outpatient (CLI) | payer MEDICARE, OTHER ==
[2018-02-23] MEDS ORDERED: ASCO500T9 PO (13:14)
[2018-02-23] MEDS ORDERED: PANT40TA2 PO (13:14)
[2018-03-01] MEDS ORDERED: LACT-246 PO (12:51)
== END 2017-11-02 23:59 ==
LOC: WOU 10:56
PROVIDERS: ATTEND Podiatrist Foot & Ankle Surgery
DX: I87.311 Chronic venous hypertension (idiopathic) with ulcer of right lower extremity (principal); L97.812 Non-pressure chronic ulcer of other part of right lower leg with fat layer exposed; T86.828 Other complications of skin graft (allograft) (autograft); I73.9 Peripheral vascular disease, unspecified; Z95.820 Peripheral vascular angioplasty status with implants and grafts; Z87.891 Personal history of nicotine dependence; I25.10 Atherosclerotic heart disease of native coronary artery without angina pectoris; E78.5 Hyperlipidemia, unspecified; Z98.41 Cataract extraction status, right eye
CPT/HCPCS: 11042; A6402

== ENCOUNTER 2017-11-09 11:08 | Outpatient (CLI) | payer MEDICARE, OTHER ==
[2018-02-23] MEDS ORDERED: ASCO500T9 PO (13:14)
[2018-02-23] MEDS ORDERED: PANT40TA2 PO (13:14)
[2018-03-01] MEDS ORDERED: LACT-246 PO (12:51)
== END 2017-11-09 23:59 | disposition home or self-care (01) ==
LOC: WOU 11:08
PROVIDERS: ATTEND Podiatrist Foot & Ankle Surgery
DX: I87.311 Chronic venous hypertension (idiopathic) with ulcer of right lower extremity (principal); L97.812 Non-pressure chronic ulcer of other part of right lower leg with fat layer exposed; T86.821 Skin graft (allograft) (autograft) failure; I73.9 Peripheral vascular disease, unspecified; I25.2 Old myocardial infarction; I25.10 Atherosclerotic heart disease of native coronary artery without angina pectoris; Z98.62 Peripheral vascular angioplasty status; Z98.41 Cataract extraction status, right eye; E78.5 Hyperlipidemia, unspecified; Z87.891 Personal history of nicotine dependence; Z79.02 Long term (current) use of antithrombotics/antiplatelets; Z79.82 Long term (current) use of aspirin
CPT/HCPCS: 11042; A6402

== ENCOUNTER 2017-11-19 11:52 | Outpatient (CLI) | payer MEDICARE, MEDICAID ==
[2018-02-23] MEDS ORDERED: PANT40TA2 PO (13:14)
[2018-02-23] MEDS ORDERED: ASCO500T9 PO (13:14)
[2018-03-01] MEDS ORDERED: LACT-246 PO (12:51)
== END 2017-11-19 23:59 | disposition home health service (06) ==
LOC: WOU 11:52
PROVIDERS: ATTEND Podiatrist Foot & Ankle Surgery
DX: I87.311 Chronic venous hypertension (idiopathic) with ulcer of right lower extremity (principal); L97.812 Non-pressure chronic ulcer of other part of right lower leg with fat layer exposed; T86.821 Skin graft (allograft) (autograft) failure; T86.828 Other complications of skin graft (allograft) (autograft); I73.9 Peripheral vascular disease, unspecified; Z98.41 Cataract extraction status, right eye; I25.10 Atherosclerotic heart disease of native coronary artery without angina pectoris; Z95.820 Peripheral vascular angioplasty status with implants and grafts; Z79.02 Long term (current) use of antithrombotics/antiplatelets; Z79.82 Long term (current) use of aspirin; I25.2 Old myocardial infarction
CPT/HCPCS: 11042; 15271; A6402; Q4132

== ENCOUNTER 2017-12-10 09:38 | Outpatient (CLI) | payer MEDICARE, MEDICAID | END 2017-12-10 23:59 | disposition home health service (06) | LOC: WOU 09:38 | PROVIDERS: ATTEND Podiatrist Foot & Ankle Surgery | DX: I87.311 Chronic venous hypertension (idiopathic) with ulcer of right lower extremity (principal); L97.812 Non-pressure chronic ulcer of other part of right lower leg with fat layer exposed; I25.2 Old myocardial infarction; Z98.41 Cataract extraction status, right eye; I25.10 Atherosclerotic heart disease of native coronary artery without angina pectoris; E78.5 Hyperlipidemia, unspecified; Z98.62 Peripheral vascular angioplasty status; I73.9 Peripheral vascular disease, unspecified; T86.821 Skin graft (allograft) (autograft) failure; T86.828 Other complications of skin graft (allograft) (autograft) | CPT/HCPCS: 11042; 15271; A6402; Z7610 ==

== ENCOUNTER 2017-12-17 08:10 | Outpatient (CLI) | payer MEDICARE, MEDICAID | END 2017-12-17 23:59 | disposition home health service (06) | LOC: WOU 08:10 | PROVIDERS: ATTEND Podiatrist Foot & Ankle Surgery | DX: I87.311 Chronic venous hypertension (idiopathic) with ulcer of right lower extremity (principal); L97.812 Non-pressure chronic ulcer of other part of right lower leg with fat layer exposed; Z95.820 Peripheral vascular angioplasty status with implants and grafts; I25.10 Atherosclerotic heart disease of native coronary artery without angina pectoris; Z87.891 Personal history of nicotine dependence; I25.2 Old myocardial infarction; T86.821 Skin graft (allograft) (autograft) failure; T86.828 Other complications of skin graft (allograft) (autograft); E78.5 Hyperlipidemia, unspecified; Z98.41 Cataract extraction status, right eye; Z79.02 Long term (current) use of antithrombotics/antiplatelets; Z79.82 Long term (current) use of aspirin | CPT/HCPCS: 11042; 15271; A6402; Z7610 ==

== ENCOUNTER → 2017-12-24 | Outpatient (CLI) | payer MEDICARE, OTHER | END | disposition home health service (06) | LOC: WOU 09:02 | PROVIDERS: ATTEND Podiatrist Foot & Ankle Surgery | DX: I87.311 Chronic venous hypertension (idiopathic) with ulcer of right lower extremity (principal); L97.812 Non-pressure chronic ulcer of other part of right lower leg with fat layer exposed; T86.821 Skin graft (allograft) (autograft) failure; T86.828 Other complications of skin graft (allograft) (autograft); I73.9 Peripheral vascular disease, unspecified; Z98.41 Cataract extraction status, right eye; I25.10 Atherosclerotic heart disease of native coronary artery without angina pectoris; E78.5 Hyperlipidemia, unspecified; Z87.891 Personal history of nicotine dependence | CPT/HCPCS: 11042; 15271; A6402; Z7610 ==

== ENCOUNTER 2018-01-04 08:38 | Outpatient (CLI) | payer MEDICARE, OTHER | END 2018-01-04 23:59 | disposition home health service (06) | LOC: WOU 08:38 | PROVIDERS: ATTEND Podiatrist Foot & Ankle Surgery | DX: I87.311 Chronic venous hypertension (idiopathic) with ulcer of right lower extremity (principal); L97.812 Non-pressure chronic ulcer of other part of right lower leg with fat layer exposed; T86.828 Other complications of skin graft (allograft) (autograft); T86.821 Skin graft (allograft) (autograft) failure; I73.9 Peripheral vascular disease, unspecified; Z98.41 Cataract extraction status, right eye; I25.10 Atherosclerotic heart disease of native coronary artery without angina pectoris; E78.5 Hyperlipidemia, unspecified | CPT/HCPCS: 11042; 15271; A6253; A6402; Z7610 ==

== ENCOUNTER 2018-01-11 08:36 | Outpatient (CLI) | payer MEDICARE, OTHER | END 2018-01-11 23:59 | disposition home health service (06) | LOC: WOU 08:36 | PROVIDERS: ATTEND Podiatrist Foot & Ankle Surgery | DX: I87.311 Chronic venous hypertension (idiopathic) with ulcer of right lower extremity (principal); L97.812 Non-pressure chronic ulcer of other part of right lower leg with fat layer exposed; T86.828 Other complications of skin graft (allograft) (autograft); T86.821 Skin graft (allograft) (autograft) failure; I73.9 Peripheral vascular disease, unspecified; I10 Essential (primary) hypertension; Z87.891 Personal history of nicotine dependence; E78.5 Hyperlipidemia, unspecified; I25.10 Atherosclerotic heart disease of native coronary artery without angina pectoris; Z98.41 Cataract extraction status, right eye | CPT/HCPCS: 11042; 15271; A6253; A6402; Q4133; Z7610 ==

== ENCOUNTER 2018-01-21 09:30 | Outpatient (CLI) | payer MEDICARE, OTHER | END 2018-01-21 23:59 | LOC: WOU 09:30 | PROVIDERS: ATTEND Podiatrist Foot & Ankle Surgery | DX: I87.311 Chronic venous hypertension (idiopathic) with ulcer of right lower extremity (principal); L97.812 Non-pressure chronic ulcer of other part of right lower leg with fat layer exposed; T86.828 Other complications of skin graft (allograft) (autograft); T86.821 Skin graft (allograft) (autograft) failure; I25.10 Atherosclerotic heart disease of native coronary artery without angina pectoris; Z95.820 Peripheral vascular angioplasty status with implants and grafts; E78.5 Hyperlipidemia, unspecified; Z98.41 Cataract extraction status, right eye; Z87.891 Personal history of nicotine dependence; I10 Essential (primary) hypertension; I73.9 Peripheral vascular disease, unspecified | CPT/HCPCS: 15271; A6402; J7040; Z7610 ==

== ENCOUNTER 2018-01-28 08:32 | Outpatient (CLI) | payer MEDICARE, OTHER | END 2018-01-28 23:59 | disposition home health service (06) | LOC: WOU 08:32 | PROVIDERS: ATTEND Podiatrist Foot & Ankle Surgery | DX: I87.311 Chronic venous hypertension (idiopathic) with ulcer of right lower extremity (principal); L97.812 Non-pressure chronic ulcer of other part of right lower leg with fat layer exposed; T86.828 Other complications of skin graft (allograft) (autograft); T86.821 Skin graft (allograft) (autograft) failure; I73.9 Peripheral vascular disease, unspecified | CPT/HCPCS: 15271; A6402; Q4132; Z7610 ==

== ENCOUNTER 2018-02-04 08:13 | Outpatient (CLI) | payer MEDICARE, OTHER | END 2018-02-04 23:59 | disposition home health service (06) | LOC: WOU 08:13 | PROVIDERS: ATTEND Podiatrist Foot & Ankle Surgery | DX: I87.311 Chronic venous hypertension (idiopathic) with ulcer of right lower extremity (principal); L97.812 Non-pressure chronic ulcer of other part of right lower leg with fat layer exposed; T86.828 Other complications of skin graft (allograft) (autograft); T86.821 Skin graft (allograft) (autograft) failure; Z98.41 Cataract extraction status, right eye; I70.209 Unspecified atherosclerosis of native arteries of extremities, unspecified extremity; Z95.820 Peripheral vascular angioplasty status with implants and grafts; Z87.891 Personal history of nicotine dependence; E78.5 Hyperlipidemia, unspecified; Z79.02 Long term (current) use of antithrombotics/antiplatelets; Z79.82 Long term (current) use of aspirin | CPT/HCPCS: 15271; A6402; Q4132; Z7610 ==

== ENCOUNTER 2018-02-11 08:10 | Outpatient (CLI) | payer MEDICARE, OTHER | END 2018-02-11 23:59 | disposition home health service (06) | LOC: WOU 08:10 | PROVIDERS: ATTEND Podiatrist Foot & Ankle Surgery | DX: I87.311 Chronic venous hypertension (idiopathic) with ulcer of right lower extremity (principal); L97.812 Non-pressure chronic ulcer of other part of right lower leg with fat layer exposed; T86.828 Other complications of skin graft (allograft) (autograft); Z87.891 Personal history of nicotine dependence; Z98.62 Peripheral vascular angioplasty status; Z98.41 Cataract extraction status, right eye; E78.5 Hyperlipidemia, unspecified; I10 Essential (primary) hypertension; I25.10 Atherosclerotic heart disease of native coronary artery without angina pectoris | CPT/HCPCS: 11042; A6402; Z7610 ==

== ENCOUNTER 2018-02-18 09:00 | Outpatient (CLI) | payer MEDICARE, OTHER | END 2018-02-18 23:59 | disposition home health service (06) | LOC: WOU 09:00 | PROVIDERS: ATTEND Podiatrist Foot & Ankle Surgery | DX: I87.311 Chronic venous hypertension (idiopathic) with ulcer of right lower extremity (principal); L97.812 Non-pressure chronic ulcer of other part of right lower leg with fat layer exposed; T86.821 Skin graft (allograft) (autograft) failure; I73.9 Peripheral vascular disease, unspecified; Z98.41 Cataract extraction status, right eye; Z87.891 Personal history of nicotine dependence; I10 Essential (primary) hypertension; I25.10 Atherosclerotic heart disease of native coronary artery without angina pectoris; Z98.62 Peripheral vascular angioplasty status; Z79.82 Long term (current) use of aspirin; Z79.02 Long term (current) use of antithrombotics/antiplatelets | CPT/HCPCS: 11042; A6402; Z7610 ==

== ENCOUNTER 2018-05-20 08:34 | Outpatient (CLI) | payer MEDICARE, OTHER ==
[~2018-05-20 08:34] MED LIST changes: +ASCO500T9 PO; +LACT-246 PO; +PANT40TA2 PO
== END 2018-05-20 23:59 | disposition home or self-care (01) ==
LOC: WOU 08:34
PROVIDERS: ATTEND Podiatrist Foot & Ankle Surgery
DX: I87.311 Chronic venous hypertension (idiopathic) with ulcer of right lower extremity (principal); L97.818 Non-pressure chronic ulcer of other part of right lower leg with other specified severity; T86.828 Other complications of skin graft (allograft) (autograft); T86.821 Skin graft (allograft) (autograft) failure; Z87.891 Personal history of nicotine dependence; I73.9 Peripheral vascular disease, unspecified; Z95.820 Peripheral vascular angioplasty status with implants and grafts; Z98.41 Cataract extraction status, right eye; I25.10 Atherosclerotic heart disease of native coronary artery without angina pectoris; E78.5 Hyperlipidemia, unspecified; I10 Essential (primary) hypertension; I25.2 Old myocardial infarction
CPT/HCPCS: 11042; A6402; Z7610

== ENCOUNTER 2018-06-03 08:36 | Outpatient (CLI) | payer MEDICARE, OTHER | END 2018-06-03 23:59 | LOC: WOU 08:36 | PROVIDERS: ATTEND Podiatrist Foot & Ankle Surgery | DX: I87.311 Chronic venous hypertension (idiopathic) with ulcer of right lower extremity (principal); L97.912 Non-pressure chronic ulcer of unspecified part of right lower leg with fat layer exposed; T86.821 Skin graft (allograft) (autograft) failure; T86.828 Other complications of skin graft (allograft) (autograft); Z98.62 Peripheral vascular angioplasty status; Z98.41 Cataract extraction status, right eye; E78.5 Hyperlipidemia, unspecified; I25.10 Atherosclerotic heart disease of native coronary artery without angina pectoris; I10 Essential (primary) hypertension; Z79.82 Long term (current) use of aspirin; Z79.02 Long term (current) use of antithrombotics/antiplatelets | CPT/HCPCS: 11042; A6402; Z7610 ==

== ENCOUNTER 2018-06-10 08:00 | Outpatient (CLI) | payer MEDICARE, OTHER | END 2018-06-10 23:59 | LOC: WOU 08:00 | PROVIDERS: ATTEND Podiatrist Foot & Ankle Surgery | DX: Z09 Encounter for follow-up examination after completed treatment for conditions other than malignant neoplasm (principal); I73.9 Peripheral vascular disease, unspecified; I87.2 Venous insufficiency (chronic) (peripheral); Z87.891 Personal history of nicotine dependence; Z98.41 Cataract extraction status, right eye; I10 Essential (primary) hypertension; I25.10 Atherosclerotic heart disease of native coronary artery without angina pectoris; Z79.82 Long term (current) use of aspirin; Z79.02 Long term (current) use of antithrombotics/antiplatelets; Z98.62 Peripheral vascular angioplasty status | CPT/HCPCS: G0463; Z7610 ==

== ENCOUNTER 2018-08-05 08:15 | Outpatient (CLI) | payer MEDICARE, OTHER | END 2018-08-05 23:59 | disposition home or self-care (01) | LOC: WOU 08:15 | PROVIDERS: ATTEND Podiatrist Foot & Ankle Surgery | DX: I73.9 Peripheral vascular disease, unspecified (principal); I87.2 Venous insufficiency (chronic) (peripheral); L60.3 Nail dystrophy; Z95.820 Peripheral vascular angioplasty status with implants and grafts; E78.5 Hyperlipidemia, unspecified; I10 Essential (primary) hypertension; Z79.82 Long term (current) use of aspirin; Z79.02 Long term (current) use of antithrombotics/antiplatelets; Z79.899 Other long term (current) drug therapy | CPT/HCPCS: G0463 ==

== ENCOUNTER 2018-10-07 08:00 | Outpatient (CLI) | payer MEDICARE, OTHER | END 2018-10-07 23:59 | disposition home or self-care (01) | LOC: WOU 08:00 | PROVIDERS: ATTEND Podiatrist Foot & Ankle Surgery | DX: I73.9 Peripheral vascular disease, unspecified (principal); I87.8 Other specified disorders of veins; Z95.820 Peripheral vascular angioplasty status with implants and grafts; E78.5 Hyperlipidemia, unspecified; I10 Essential (primary) hypertension | CPT/HCPCS: G0463 ==

== ENCOUNTER 2022-03-20 20:07 | Inpatient (IN) | payer MEDICARE, OTHER ==
[~2022-03-20] VITALS: Ht 188 cm; Wt 81.6 kg
[~2022-03-20 20:07] MED LIST changes: +ASCO-352 PO; -ASCO500T9 PO; +MULT-754 PO; -MULT1TAB73 PO
[2022-03-20] MEDS ORDERED: MORPHINE SULFATE INJ 2 MG/ML DISP.SYRIN ONE (21:18)
--- NOTE | 2022-03-20 21:29 | NUR ---
CALLED [facility] FLOOR PERSON AMPARO BRIAN
[2022-03-20] MEDS ORDERED: MORPHINE SULFATE INJ 2 MG/ML DISP.SYRIN IV ONE (21:30)
--- NOTE | 2022-03-20 21:31 | NUR ---
TAMIKOID SWABBED, SENT TO LAB.
[2022-03-20 21:39] LABS: BASOPHILS # (AUTO) 0.1 K/uL (0.0-0.2); BASOPHILS % (AUTO) 0.3 % (0.0-2.0); EOSINOPHILS % (AUTO) 0.1 % (0.0-6.0); HEMATOCRIT 32 % (39-51); HEMOGLOBIN 10.3 g/dL (13.5-17.5); LYMPHOCYTES # (AUTO) 0.7 K/uL (0.8-4.8); LYMPHOCYTES % (AUTO) 3.4 % (20.0-44.0); MEAN CORPUSCULAR HGB CONC 33 g/dl (31.0-36.0); MEAN CORPUSCULAR VOLUME 86 fL (80-96); MONOCYTES # (AUTO) 0.6 K/uL (0.1-1.30); MONOCYTES % (AUTO) 2.7 % (2.0-12.0); NEUTROPHILS # (AUTO) 20.6 K/uL (1.8-8.9); NEUTROPHILS % (AUTO) 93.5 % (43.0-81.0); PLATELET COUNT (AUTO) 194 K/uL (150-450); RED BLOOD CELL COUNT(AUTO) 3.68 MIL/uL (4.5-6.0)
[2022-03-20 21:49] LABS: CALCIUM, SERUM 8.4 mg/dL (8.5-10.1); CARBON DIOXIDE 25 mmol/L (21-32); CHLORIDE 104 mmol/L (98-107); GLUCOSE 134 mg/dL (74-106); POTASSIUM 4.7 mmol/L (3.5-5.1); SODIUM SERUM 135 mmol/L (136-145); UREA NITROGEN, BLOOD 34 mg/dL (7-18)
[2022-03-20 22:17] LABS: BAND % (MANUAL) 12 % (0.0-5.0); LYMPHOCYTES % (MANUAL) 7 % (16-48); MONOCYTES % (MANUAL) 3 % (0-11.0); NEUTROPHILS % (MANUAL) 78 (42-76)
--- NOTE | 2022-03-20 22:21 | NUR ---
REPORT GIVEN TO PRIYANKA DONAHUE FOR TWIN
[2022-03-20] MEDS ORDERED: IV LR 1000 ML 1,000 ML IV ONE (22:30)
[2022-03-20 22:50] VITALS: BP 138/58
--- NOTE | 2022-03-20 22:50 | NUR ---
RN ADMITTING NOTE PATIENT RECEIVED FROM ER FOR L HIP FX. PATIENT IS A/O X 4, ABLE TO MAKE NEEDS KNOWN. PATIENT IS STABLE ON RA, TOLERATING WELL. PATIENT'S BREATHING EVEN AND UNLABORED. L HAND 20 G PATENT AND INTACT, FLUSHING WELL. SKIN ISSUES DOCUMENTED. BELONGINGS INVENTORIED. VSS STABLE UPON TRANSFER. PATIENT REPORTS 5/10 PAIN NOW ON L HIP, WILL MANAGE PAIN APPROPRIATELY. L EXTREMITY SHORTENING NOTED, NEURO CHECK DONE, NO TINGLING SENSATION, L PEDAL PULSE PRESENT. SAFETY MEASURES IN PLACE: BED LOCKED AND IN LOWEST POSITION, CALL LIGHT WITHIN REACH, SIDE RAILS UP. WILL MONITOR PATIENT CLOSELY.
[2022-03-20 22:58] LABS: BILIRUBIN,URINE NEGATIVE (NEGATIVE); COLOR,URINE YELLOW (YELLOW); LEUKOCYTE ESTERASE ,URINE NEGATIVE (NEGATIVE); NITRITE, URINE NEGATIVE (NEGATIVE); PH,URINE 5.5 (5.0-8.0); PROTEIN,URINE NEGATIVE (NEGATIVE); UGLUCOSE NEGATIVE (NEGATIVE); UROBILINOGEN,URINE 0.2 EU/dL (0.2)
[2022-03-20] MEDS ORDERED: ONDANSETRON HCL/PF 4 MG/2 ML VIAL IVP PRN (23:00)
[2022-03-20] MEDS ORDERED: hydrALAZINE HCL IV 20 MG VIAL IV PRN (23:00)
[2022-03-20] MEDS ORDERED: CEFEPIME 1 GM in IV D5W 50 ML IV ONE (23:00)
[2022-03-20] MEDS ORDERED: ACETAMINOPHEN 325 MG TABLET PO PRN (23:00)
[2022-03-21] VITALS (18 sets, daily range): BP systolic 69–97; BP diastolic 35–72
[2022-03-21] MEDS ORDERED: CEFEPIME 1 GM VIAL ONE ×2 (00:21→23:36)
--- NOTE | 2022-03-21 02:33 | NUR ---
RN NOTE CLARIFIED LOVENOX AND HEPARIN ORDER WITH MD. PER MD, DISCONTINUE LOVENOX. ORDER CARRIED OUT.
[2022-03-21] MEDS: MORPHINE SULFATE INJ 2 MG/ML DISP.SYRIN IV PRN ×3 (04:11→11:52)
[2022-03-21 06:44] LABS: BASOPHILS % (AUTO) 0.2 % (0.0-2.0); HEMATOCRIT 35 % (39-51); HEMOGLOBIN 11.1 g/dL (13.5-17.5); LYMPHOCYTES # (AUTO) 0.7 K/uL (0.8-4.8); LYMPHOCYTES % (AUTO) 3.8 % (20.0-44.0); MEAN CORPUSCULAR HGB CONC 32 g/dl (31.0-36.0); MEAN CORPUSCULAR VOLUME 87 fL (80-96); MONOCYTES # (AUTO) 0.5 K/uL (0.1-1.30); MONOCYTES % (AUTO) 2.4 % (2.0-12.0); NEUTROPHILS # (AUTO) 18.4 K/uL (1.8-8.9); NEUTROPHILS % (AUTO) 93.6 % (43.0-81.0); PLATELET COUNT (AUTO) 192 K/uL (150-450); RED BLOOD CELL COUNT(AUTO) 3.96 MIL/uL (4.5-6.0); WHITE BLOOD COUNT (AUTO) 19.6 K/uL (4.3-11.0)
--- NOTE | 2022-03-21 07:02 | NUR ---
RN CLOSING NOTE PATIENT IN BED, EYES CLOSED. PATIENT IS ON RA, TOLERATING WELL. BREATHING EVEN AND UNLABORED. PATIENT'S PAIN MANAGED WITH MORPHINE IV. PATIENT NPO AT THIS TIME FOR PROCEDURE WITH DR. MARINO IN THE AFTERNOON. NOT IN ANY APPARENT DISTRESS. SAFETY MEASURES IN PLACE: BED LOCKED AND IN LOWEST POSITION, CALL LIGHT WITHIN REACH, SIDE RAILS UP. WILL ENDORSE TO DAY SHIFT NURSE FOR TWIN.
[2022-03-21 07:11] LABS: ALANINE AMINOTRANSFERASE 18 U/L (12-78); ALBUMIN 3.2 g/dL (3.4-5.0); ALKALINE PHOSPHATASE 103 U/L (46-116); ASPARTATE AMINOTRANSFERASE 44 U/L (15-37); BILIRUBIN,TOTAL 0.3 mg/dL (0.2-1.0); CALCIUM, SERUM 8.7 mg/dL (8.5-10.1); CARBON DIOXIDE 23 mmol/L (21-32); CHLORIDE 104 mmol/L (98-107); CREATININE 1.8 mg/dL (0.6-1.3); GLUCOSE 125 mg/dL (74-106); MAGNESIUM 1.9 mg/dL (1.8-2.4); PHOSPHORUS 3.7 mg/dL (2.5-4.9); POTASSIUM 4.7 mmol/L (3.5-5.1); SODIUM SERUM 136 mmol/L (136-145); TOTAL PROTEIN, SERUM 7.7 g/dL (6.4-8.2); UREA NITROGEN, BLOOD 34 mg/dL (7-18)
--- NOTE | 2022-03-21 07:20 | NUR ---
MS RN OPENING NOTE RECEIVED PATIENT IN BED, ALERT AND ORIENTED X 4. PATIENT IS ON RA, WITH EQUAL AND UNLABORED BREATING, WITH NO SIGNS OF RESPIRATORY DISTRESS. NO COMPLAIN OF PAIN OR DISCOMFORT. PATIENT WITH IV ACCESS ON THE LEFT HAND G 20 WITH IVF NS RUNING AT 75ML/HR. PATIENT ON NPO AT THIS TIME FOR PROCEDURE WITH DR. COLLAZO. NOT IN ANY APPARENT DISTRESS. SAFETY MEASURES IN PLACE: BED LOCKED AND IN LOWEST POSITION, CALL LIGHT WITHIN REACH, SIDE RAILS UP. WILL CONTINUE TO MONITOR PATIENT.
[2022-03-21] MEDS: ENSURE ENLIVE 237 ML LIQUID (VANILLA) PO SCH ×2 (09:00→17:00)
[2022-03-21] MEDS: MULTIVIT W/MINERALS 1 TAB TABLET PO SCH (09:06)
[2022-03-21] MEDS: ATORVASTATIN 10 MG TABLET PO SCH (09:06)
[2022-03-21] MEDS: BENAZEPRIL HCL 20 MG TABLET PO SCH (09:07)
[2022-03-21] MEDS: PANTOPRAZOLE 40 MG TABLET.DR PO SCH (09:07)
[2022-03-21] MEDS: AMLODIPINE BESYLATE 5 MG TABLET PO SCH (09:07)
[2022-03-21] MEDS: METOPROLOL SUCCINATE 50 MG TAB.SR.24H PO SCH ×2 (09:08→17:00)
[2022-03-21] MEDS: ASCORBIC ACID 500 MG TABLET PO SCH ×2 (09:08→17:00)
[2022-03-21] MEDS ORDERED: Z GUARD REMEDY 4 OZ OINT TP PRN (10:00)
[2022-03-21] MEDS: IV NS 0.9% 1,000 ML IV SCH ×2 (14:10)
--- NOTE | 2022-03-21 15:21 | NUR ---
MS RN NOTE PATIENT TRANSPORTED TO OR FOR ORIF PROCEDURE. PATIENT IS STABLE.
[2022-03-21] MEDS ORDERED: BUPIVACAINE 0.25% 75 MG/30 ML VIAL ONE (15:24)
[2022-03-21] MEDS ORDERED: MIDAZOLAM HCL 2 MG/2ML VIAL ONE (16:04)
[2022-03-21] MEDS ORDERED: FENTANYL PF 100MCG/2ML AMPUL ONE (16:04)
[2022-03-21] MEDS ORDERED: FAMOTIDINE/PF INJ 20 MG/2 ML VIAL IV ONE (16:05)
[2022-03-21] MEDS ORDERED: ROCURONIUM BROMIDE 50 MG/5 ML ONE (16:05)
--- NOTE | 2022-03-21 16:30 | NUR ---
MS RN NOTE PATIENT STILL AT OR
[2022-03-21] MEDS ORDERED: ALBUTEROL FS 2.5 MG/3 ML VIAL.NEB ONE (17:58)
[2022-03-21] MEDS ORDERED: BISACODYL SUPP (10 MG) 10 MG/SUPP.RECT SUPP.RECT RC PRN (18:30)
[2022-03-21] MEDS ORDERED: DOCUSATE SODIUM 100 MG CAPSULE PO PRN (18:30)
[2022-03-21] MEDS ORDERED: SENNOSIDES 8.6 MG TABLET PO PRN (18:30)
[2022-03-21] MEDS ORDERED: ACETAMINOPHEN 325 MG TABLET PO PRN (18:30)
[2022-03-21] MEDS ORDERED: MORPHINE SULFATE INJ 4 MG/ML DISP.SYRIN IV PRN (18:30)
[2022-03-21] MEDS ORDERED: ONDANSETRON HCL/PF 4 MG/2 ML VIAL IVP PRN (18:30)
--- NOTE | 2022-03-21 18:52 | NUR ---
PATIENT FOR TRANSFER TO ICU DIRECTLY FROM OR. PATIENT ENDORSED TO PATTIE DONAHUE OF ICU.
--- NOTE | 2022-03-21 19:20 | NUR ---
DENTAL TECHNICIAN INSTRUCTOR RCD PT POST OP WITH SATURATION 88-89 ON 9 L SIMPLE MASK; CONGESTED; SBP 70-80 Addendum: 03/21/22 at 1950 by JERRY JORDAN RN RCD ORDERS FROM [facility] FOR STAT CBC BMP CXR BOLUS
[2022-03-21 19:47] LABS: HEMOGLOBIN 9.6 g/dL (13.5-17.5)
[2022-03-21] MEDS ORDERED: IV NS 0.9% 500 ML IV ONE (20:00)
[2022-03-21 20:12] LABS: BASOPHILS % (AUTO) 0.1 % (0.0-2.0); HEMATOCRIT 28 % (39-51); HEMOGLOBIN 9.1 g/dL (13.5-17.5); LYMPHOCYTES # (AUTO) 0.2 K/uL (0.8-4.8); LYMPHOCYTES % (AUTO) 1.6 % (20.0-44.0); MEAN CORPUSCULAR HGB CONC 33 g/dl (31.0-36.0); MEAN CORPUSCULAR VOLUME 87 fL (80-96); MONOCYTES # (AUTO) 0.1 K/uL (0.1-1.30); MONOCYTES % (AUTO) 1.1 % (2.0-12.0); NEUTROPHILS # (AUTO) 12.1 K/uL (1.8-8.9); NEUTROPHILS % (AUTO) 97.2 % (43.0-81.0); PLATELET COUNT (AUTO) 169 K/uL (150-450); RED BLOOD CELL COUNT(AUTO) 3.18 MIL/uL (4.5-6.0); WHITE BLOOD COUNT (AUTO) 12.4 K/uL (4.3-11.0)
[2022-03-21 20:37] LABS: CARBON DIOXIDE 22 mmol/L (21-32); CHLORIDE 109 mmol/L (98-107); CREATININE 2.1 mg/dL (0.6-1.3); GLUCOSE 120 mg/dL (74-106); POTASSIUM 4.5 mmol/L (3.5-5.1); SODIUM SERUM 139 mmol/L (136-145); UREA NITROGEN, BLOOD 32 mg/dL (7-18)
[2022-03-21] MEDS ORDERED: HEPARIN SODIUM, PORCINE 5000 UNITS/1 ML VIAL SQ SCH (21:00)
[2022-03-21] MEDS: IV NS 0.9% 250 ML IV PRN (21:16)
[2022-03-21] MEDS ORDERED: NOREPINEPHRINE 8 MG in IV NS 0.9% 242 ML IV PRN (22:00)
[2022-03-21] MEDS ORDERED: ENOXAPARIN SODIUM 40 MG/0.4 ML DISP.SYRIN SQ SCH (23:00)
[2022-03-21] MEDS ORDERED: CEFAZOLIN 1 GM ONE (23:32)
[2022-03-21] MEDS: CEFEPIME 1 GM in IV D5W 50 ML IV SCH (23:44)
[2022-03-22] VITALS (72 sets, daily range): BP systolic 73–134; BP diastolic 36–95
--- NOTE | 2022-03-22 | NUR ---
DOLL SURGEON PT BEGAN PULLING ECG LEADS AND PULLED OUT IV REMOVING OXYGEN; BSWR APPLIED AT THIS TIME
[2022-03-22] MEDS ORDERED: NOREPINEPHRINE 8MG/250ML RTU 250 ML IV ONE (00:19)
[2022-03-22] MEDS: ANCEF 1 GM/50 ML D5W IV SCH ×4 (00:28→09:45)
--- NOTE | 2022-03-22 01:26 | NUR ---
PT LETHARGIC UNABLE TO DO INCENTIVE SPIROMETER.
[2022-03-22 05:27] LABS: BASOPHILS # (AUTO) 0.1 K/uL (0.0-0.2); BASOPHILS % (AUTO) 0.2 % (0.0-2.0); HEMATOCRIT 24 % (39-51); HEMOGLOBIN 7.9 g/dL (13.5-17.5); LYMPHOCYTES # (AUTO) 0.6 K/uL (0.8-4.8); LYMPHOCYTES % (AUTO) 2.2 % (20.0-44.0); MEAN CORPUSCULAR HGB CONC 33 g/dl (31.0-36.0); MEAN CORPUSCULAR VOLUME 87 fL (80-96); MONOCYTES # (AUTO) 0.6 K/uL (0.1-1.30); MONOCYTES % (AUTO) 2.2 % (2.0-12.0); NEUTROPHILS # (AUTO) 26.3 K/uL (1.8-8.9); NEUTROPHILS % (AUTO) 95.4 % (43.0-81.0); PLATELET COUNT (AUTO) 178 K/uL (150-450); RED BLOOD CELL COUNT(AUTO) 2.81 MIL/uL (4.5-6.0); WHITE BLOOD COUNT (AUTO) 27.6 K/uL (4.3-11.0)
[2022-03-22 05:49] LABS: CALCIUM, SERUM 7.9 mg/dL (8.5-10.1); CARBON DIOXIDE 21 mmol/L (21-32); CHLORIDE 107 mmol/L (98-107); CREATININE 2.2 mg/dL (0.6-1.3); GLUCOSE 200 mg/dL (74-106); POTASSIUM 4.9 mmol/L (3.5-5.1); SODIUM SERUM 137 mmol/L (136-145); UREA NITROGEN, BLOOD 39 mg/dL (7-18)
[2022-03-22] MEDS: PANTOPRAZOLE 40 MG TABLET.DR PO SCH (07:30)
--- NOTE | 2022-03-22 07:30 | NUR ---
RN OPENING NOTE PT OBSERVED SLEEPING IN BED. PT IS ON 10L O2 VIA SIMPLE MASK TOLERATING WELL WITH NO SIGNS OF DISTRESS OR LABORED BREATHING O2 SAT 99%. PT IS A/OX1 AT THIS TIME ALTERED LOC. PT IS CONTINENT AND USES URINAL. IV ACCESS R LEG INFUSING WITH LEVO @0.1MCG. BED IS LOCKED IN LOWEST POSITION X2 BED RAILS UP CALL VILLAFANA IS WITHIN REACH AND ALL HOSPITAL SAFETY PROTOCOLS ARE IN PLACE. WILL CONTINUE TO MONITOR THIS SHIFT.
[2022-03-22] MEDS: ENSURE ENLIVE 237 ML LIQUID (VANILLA) PO SCH ×2 (08:18→17:00)
[2022-03-22] MEDS: BENAZEPRIL HCL 20 MG TABLET PO SCH (09:00)
[2022-03-22] MEDS: METOPROLOL SUCCINATE 50 MG TAB.SR.24H PO SCH (09:00)
[2022-03-22] MEDS: ATORVASTATIN 10 MG TABLET PO SCH (09:00)
[2022-03-22] MEDS: MULTIVIT W/MINERALS 1 TAB TABLET PO SCH (09:00)
[2022-03-22] MEDS: CLOPIDOGREL BISULFATE 75 MG TABLET PO SCH (09:00)
[2022-03-22] MEDS: ASCORBIC ACID 500 MG TABLET PO SCH ×2 (09:00→16:48)
[2022-03-22] MEDS: AMLODIPINE BESYLATE 5 MG TABLET PO SCH (09:00)
--- NOTE | 2022-03-22 09:00 | NUR ---
RN NOTE: MEDICATIONS ALTERED LOC AT THIS TIME UNABLE TO TAKE PO MEDICATIONS. WILL REASSESS THROUGHOUT SHIFT.
[2022-03-22] MEDS: ENOXAPARIN SODIUM 40 MG/0.4 ML DISP.SYRIN SQ SCH (09:51)
[2022-03-22 09:52] LABS: ABG BASE EXCESS -7.7 mmol/L; ABG OXYGEN SATURATION 94.8 % (92.0-98.5); ABG PCO2 35.3 mmHg (35.0-45.0); ABG PH 7.317 (7.350-7.450); ABG PO2 76.5 mmHg (75.0-100.0); AaDO2 601.2 mmHg; COHb 0.3 % (0.5-1.5); MetHb 0.2 % (0.0-1.5); O2Hb 94.3 % (94.0-97.0); SITE, ABG Right Radial; VENT MODE, BG NRB 100%
[2022-03-22] MEDS: METOPROLOL SUCCINATE 25 MG TAB.SR.24H PO SCH (17:00)
[2022-03-22] MEDS: CEFEPIME 1 GM in IV D5W 50 ML IV SCH (23:29)
[2022-03-23] VITALS (22 sets, daily range): BP systolic 99–127; BP diastolic 41–77
[2022-03-23] MEDS: HYDROCODONE/APAP 5/325MG TABLET PO PRN ×2 (01:39→17:24)
[2022-03-23 04:53] LABS: BASOPHILS % (AUTO) 0.1 % (0.0-2.0); EOSINOPHILS % (AUTO) 0.1 % (0.0-6.0); HEMATOCRIT 21 % (39-51); LYMPHOCYTES # (AUTO) 1.2 K/uL (0.8-4.8); LYMPHOCYTES % (AUTO) 9.1 % (20.0-44.0); MEAN CORPUSCULAR HGB CONC 33 g/dl (31.0-36.0); MEAN CORPUSCULAR VOLUME 87 fL (80-96); MONOCYTES # (AUTO) 0.8 K/uL (0.1-1.30); NEUTROPHILS # (AUTO) 11.1 K/uL (1.8-8.9); NEUTROPHILS % (AUTO) 84.7 % (43.0-81.0); PLATELET COUNT (AUTO) 142 K/uL (150-450); RED BLOOD CELL COUNT(AUTO) 2.42 MIL/uL (4.5-6.0); WHITE BLOOD COUNT (AUTO) 13.1 K/uL (4.3-11.0)
[2022-03-23 05:04] LABS: CALCIUM, SERUM 7.6 mg/dL (8.5-10.1); CARBON DIOXIDE 25 mmol/L (21-32); CHLORIDE 108 mmol/L (98-107); CREATININE 2.1 mg/dL (0.6-1.3); GLUCOSE 112 mg/dL (74-106); POTASSIUM 4.5 mmol/L (3.5-5.1); SODIUM SERUM 139 mmol/L (136-145); UREA NITROGEN, BLOOD 45 mg/dL (7-18)
[2022-03-23] MEDS: ATORVASTATIN 10 MG TABLET PO SCH (08:07)
[2022-03-23] MEDS: ASCORBIC ACID 500 MG TABLET PO SCH ×2 (08:07→16:45)
[2022-03-23] MEDS: AMLODIPINE BESYLATE 5 MG TABLET PO SCH (08:07)
[2022-03-23] MEDS: PANTOPRAZOLE 40 MG TABLET.DR PO SCH (08:07)
[2022-03-23] MEDS: METOPROLOL SUCCINATE 25 MG TAB.SR.24H PO SCH ×2 (08:07→16:46)
[2022-03-23] MEDS: MULTIVIT W/MINERALS 1 TAB TABLET PO SCH (08:07)
[2022-03-23] MEDS: BENAZEPRIL HCL 20 MG TABLET PO SCH (08:07)
[2022-03-23] MEDS: ENSURE ENLIVE 237 ML LIQUID (VANILLA) PO SCH ×2 (08:07→17:27)
--- NOTE | 2022-03-23 08:26 | NUR ---
RN CLOSING NOTE PT OBSERVED SLEEPING IN BED. PT IS ON 4L O2 VIA NC TOLERATING WELL WITH NO SIGNS OF DISTRESS OR LABORED BREATHING O2 SAT 99%. PT WILL BE RECEIVING 1 UNIT PRBC TODAY. PT IS A/OX4. FC IS IN PLACE DRAINING URINE TO GRAVITY NO BOWEL MOVEMENT. PT IS ON CLEAR LIQUIDS AT THIS TIME AND TOLERATED WELL. IV ACCESS R UA PICC LINE WITH NO FLUIDS INFUSING AT THIS TIME. BED IS LOCKED IN LOWEST POSITION X2 BED RAILS UP CALL VILLAFANA IS WITHIN REACH AND ALL HOSPITAL SAFETY PROTOCOLS ARE IN PLACE. WILL ENDORSE TO DAY SHIFT NURSE FOR TWIN.
[2022-03-23] MEDS: CLOPIDOGREL BISULFATE 75 MG TABLET PO SCH (09:00)
[2022-03-23] MEDS: ENOXAPARIN SODIUM 40 MG/0.4 ML DISP.SYRIN SQ SCH (09:00)
--- NOTE | 2022-03-23 12:05 | NUR ---
ICU/RN BLOOD TRANSFUSION 1 UNIT PRBC INITIATED. VSS.
--- NOTE | 2022-03-23 12:28 | NUR ---
ICU/RN REPORT GIVEN TO MARIA DONAHUE FOR TWIN.
--- NOTE | 2022-03-23 12:29 | NUR ---
rn notes patient a/o x4, offered lunch tolerated well. patient getting blood transfusion at this time 120 ml/hr on quita picc line intact. patient refused pain, t- 98.1F, bp-119/51, p-61. will follow up .
--- NOTE | 2022-03-23 15:00 | NUR ---
RN NOTES FINISHED BLOOD TRANSFUSION AT THIS TIME. PATIENT STABLE T-98F, VSS. PATIENT REFUSED PAIN. WILL FOLLOW UP .
--- NOTE | 2022-03-23 15:45 | NUR ---
RN NOTES TRANSFERRED PATIENT TO THE TELE UNIT ROOM 114 BED 1 AT THIS TIME WITH STABLE CONDITION. BEDSIDE REPORT GIVEN GODFREY BOLDEN , FOLLOW PLAN OF CARE.
--- NOTE | 2022-03-23 16:00 | NUR ---
RN NOTE RECEIVED PATIENT IN STABLE CONDITION. NO CURRENT COMPLAINTS OF PAIN OR SOB. PATIENT PLACED IN ROOM 114-1. WILL RESUME TWIN.
--- NOTE | 2022-03-23 18:51 | NUR ---
RN CLOSING NOTE PT OBSERVED SLEEPING IN BED. PT IS ON 2L O2 VIA NC TOLERATING WELL WITH NO SIGNS OF DISTRESS OR LABORED BREATHING O2 SAT 99%. PT WILL BE RECEIVING 1 UNIT PRBC TODAY. PT IS A/OX4. FC IS IN PLACE DRAINING URINE TO GRAVITY NO BOWEL MOVEMENT. PT IS ON CLEAR LIQUIDS AT THIS TIME AND TOLERATED WELL. IV ACCESS R UA PICC LINE WITH NO FLUIDS INFUSING AT THIS TIME. BED IS LOCKED IN LOWEST POSITION X2 BED RAILS UP CALL VILLAFANA IS WITHIN REACH AND ALL HOSPITAL SAFETY PROTOCOLS ARE IN PLACE. WILL ENDORSE TO DAY SHIFT NURSE FOR TWIN.
--- NOTE | 2022-03-23 20:57 | NUR ---
ASE MASTER MECHANIC OPENING NOTE PT RECEIVED IN BED, AWAKE, A&O X4, CALM, COOPERATIVE. PT IS ON 2L NC WITH O2SAT OF 96%; NOTED TO HAVE NON-PRODUCTIVE COUGH; NO OTHER S/S OF RESP DISTRESS, NO SOB, NON-LABORED AND EQUAL BREATHING. PT ATTACHED TO EXTERNAL MONITOR SR WITH HR OF 60. SMALL INTACT AND PATENT WITH NO SIGNS OF LEAKING, DRAINING CLEAR AND YELLOW URINE. PT NOTED TO HAVE DRESSING ON LEFT HIP, DRESSING IS C/D/I, NO SATURATION NOTED. JAZ TL PICC INTACT AND PATENT, FLUSHES EASILY WITH NO RESISTANCE; NO MEDS/FLUIDS INFUSING THROUGH IT. BED IN LOWEST POSITION, CALL LIGHT WITHIN REACH, SIDE RAILS UP X2. WILL CONTINUE TO MONITOR THROUGHOUT THE NIGHT.
[2022-03-23] MEDS: CEFEPIME 1 GM in IV D5W 50 ML IV SCH (22:38)
[2022-03-23] MEDS: IV NS 0.9% 250 ML IV PRN (22:48)
[2022-03-24] VITALS: BP 111/58
[2022-03-24 04:00] VITALS: BP 119/57
[2022-03-24 06:17] LABS: BASOPHILS % (AUTO) 0.3 % (0.0-2.0); EOSINOPHILS % (AUTO) 1.1 % (0.0-6.0); HEMATOCRIT 25 % (39-51); HEMOGLOBIN 8.2 g/dL (13.5-17.5); LYMPHOCYTES # (AUTO) 2.1 K/uL (0.8-4.8); LYMPHOCYTES % (AUTO) 18.7 % (20.0-44.0); MEAN CORPUSCULAR HGB CONC 33 g/dl (31.0-36.0); MEAN CORPUSCULAR VOLUME 85 fL (80-96); MONOCYTES # (AUTO) 0.8 K/uL (0.1-1.30); MONOCYTES % (AUTO) 6.9 % (2.0-12.0); NEUTROPHILS # (AUTO) 8.2 K/uL (1.8-8.9); PLATELET COUNT (AUTO) 150 K/uL (150-450); RED BLOOD CELL COUNT(AUTO) 2.93 MIL/uL (4.5-6.0); WHITE BLOOD COUNT (AUTO) 11.2 K/uL (4.3-11.0)
[2022-03-24 06:30] LABS: CALCIUM, SERUM 7.4 mg/dL (8.5-10.1); CARBON DIOXIDE 24 mmol/L (21-32); CHLORIDE 108 mmol/L (98-107); CREATININE 1.6 mg/dL (0.6-1.3); GLUCOSE 92 mg/dL (74-106); SODIUM SERUM 138 mmol/L (136-145); UREA NITROGEN, BLOOD 37 mg/dL (7-18)
--- NOTE | 2022-03-24 06:53 | NUR ---
TILE MECHANIC HELPER CLOSING NOTE PT REMAINS IN BED, ASLEEP BUT EASILY AROUSABLE, A&O X4, CALM, COOPERATIVE. CONTINUES TO BE ON 2L NC WITH O2SAT RANGING FROM 95%-96%; HAS NON-PRODUCTIVE COUGH BUT NO OTHER S/S OF RESP DISTRESS, NO SOB, NON-LABORED AND EQUAL BREATHING. PT ATTACHED TO EXTERNAL MONITOR SR WITH HR RANGING FROM 60- 60. SMALL INTACT AND PATENT WITH NO SIGNS OF LEAKING, DRAINING CLEAR AND YELLOW URINE. DRESSING ON LEFT HIP, DRESSING IS C/D/I, NO SATURATION NOTED. JAZ TL PICC INTACT AND PATENT, FLUSHES EASILY WITH NO RESISTANCE; NO MEDS/FLUIDS INFUSING THROUGH IT. ALL DUE MEDS ADMINISTERED DURING THE NIGHT. BED IN LOWEST POSITION, CALL LIGHT WITHIN REACH, SIDE RAILS UP X2. WILL ENDORSE TO DAYSHIFT NURSE TO CONTINUE CARE.
--- NOTE | 2022-03-24 07:25 | NUR ---
telecommunications network planner opening note pt in bed.patient is asleep easiyly arousable, alert and oriented x4. patient is able to make needs known. patient is on 2l nasal cannula saturating at 93-97%.patient is attached to external monitor sinus rhytm. patient has right upper arm picc line. iv patent, intact and flushing well. patient has campos cathether yellow color draining to gravity. no signs of kinks or obstruction. all safety measures in place. call light within reach.bed locked at lowest position. side rails up x2.
[2022-03-24 08:00] VITALS: BP 121/59
[2022-03-24] MEDS: ATORVASTATIN 10 MG TABLET PO SCH (08:39)
[2022-03-24] MEDS: MULTIVIT W/MINERALS 1 TAB TABLET PO SCH (08:39)
[2022-03-24] MEDS: ASCORBIC ACID 500 MG TABLET PO SCH (08:39)
[2022-03-24] MEDS: PANTOPRAZOLE 40 MG TABLET.DR PO SCH (08:39)
[2022-03-24] MEDS: ENSURE ENLIVE 237 ML LIQUID (VANILLA) PO SCH (09:00)
[2022-03-24] MEDS: ENOXAPARIN SODIUM 40 MG/0.4 ML DISP.SYRIN SQ SCH (09:00)
[2022-03-24] MEDS: CLOPIDOGREL BISULFATE 75 MG TABLET PO SCH (09:00)
--- NOTE | 2022-03-24 10:00 | NUR ---
notified md moreno if lovenox and plavix can held today. said ok to hold
--- NOTE | 2022-03-24 10:30 | NUR ---
telecom specialist note notified md moreno if 0900 blood pressure medications can be given due to bp being 121/59.said ok to give
[2022-03-24] MEDS: BENAZEPRIL HCL 20 MG TABLET PO SCH (11:19)
[2022-03-24] MEDS: AMLODIPINE BESYLATE 5 MG TABLET PO SCH (11:19)
[2022-03-24] MEDS: METOPROLOL SUCCINATE 25 MG TAB.SR.24H PO SCH (11:20)
[2022-03-24 12:00] VITALS: BP 121/59
[2022-03-24] MEDS ORDERED: DOCU100C36 PO (12:35)
[2022-03-24] MEDS ORDERED: ASPI-992 PO (12:35)
[2022-03-24] MEDS ORDERED: HYDR-3980 PO (12:35)
--- NOTE | 2022-03-24 16:41 | NUR ---
telephone plant power operator note gave report to karrie and Rocio at [facility]. patient stable condition and vital signs. removed picc line. patient verbalized understanding and discharge instructions to follow up appointment to get michel removed.
[2022-03-24] MEDS ORDERED: ENSURE CLEAR 237 ML LIQUID (MIX BERRY) PO SCH (17:00)
== END 2022-03-24 16:38 | DRG 480 ==
LOC: ER 20:12 → MED 22:31 → ICU 03-21 19:07 → TELE1 03-23 15:45
PROVIDERS: ADMIT Internal Medicine; ATTEND Internal Medicine
PROC: 0QS706Z Reposition Left Upper Femur with Intramedullary Internal Fixation Device, Open Approach (ICD-10-PCS; principal; 2022-03-21)
PROC: 02HV33Z Insertion of Infusion Device into Superior Vena Cava, Percutaneous Approach (ICD-10-PCS; 2022-03-22)
PROC: B548ZZA Ultrasonography of Superior Vena Cava, Guidance (ICD-10-PCS; 2022-03-22)
PROC: 30233N1 Transfusion of Nonautologous Red Blood Cells into Peripheral Vein, Percutaneous Approach (ICD-10-PCS; 2022-03-23)
DX: S72.142A Displaced intertrochanteric fracture of left femur, initial encounter for closed fracture (principal); J96.01 Acute respiratory failure with hypoxia; N17.0 Acute kidney failure with tubular necrosis; D62 Acute posthemorrhagic anemia; R57.9 Shock, unspecified; I25.10 Atherosclerotic heart disease of native coronary artery without angina pectoris; Z20.822 Contact with and (suspected) exposure to COVID-19; Y92.9 Unspecified place or not applicable; N18.9 Chronic kidney disease, unspecified; I12.9 Hypertensive chronic kidney disease with stage 1 through stage 4 chronic kidney disease, or unspecified chronic kidney disease; K21.9 Gastro-esophageal reflux disease without esophagitis; W18.30XA Fall on same level, unspecified, initial encounter; E87.5 Hyperkalemia; I73.9 Peripheral vascular disease, unspecified; H26.9 Unspecified cataract; R26.9 Unspecified abnormalities of gait and mobility; Z79.02 Long term (current) use of antithrombotics/antiplatelets; Z79.899 Other long term (current) drug therapy; E78.5 Hyperlipidemia, unspecified; Z95.1 Presence of aortocoronary bypass graft; Z87.891 Personal history of nicotine dependence; E88.09 Other disorders of plasma-protein metabolism, not elsewhere classified; D72.829 Elevated white blood cell count, unspecified; L89.159 Pressure ulcer of sacral region, unspecified stage; D63.8 Anemia in other chronic diseases classified elsewhere
CPT/HCPCS: 36415; 36569; 36600; 71045-TC; 73020; 73502; 73552; 76770-TC; 80048-TC; 80053-TC; 82803-TC; 83735-TC; 84100-TC; 85025-TC; 85027-TC; 85730-TC; 86850-TC; 87081-TC; 94799-TC; 97110-TC; 97530-TC; A4217; A6209; A6253; C1713; C9803; G0378; J0690; J0692; J1100; J1885; J2250; J2270; J2405; J2704; J2765; J3010; J3490; J7030; J7040; J7050; J7060; J7120; P9016